=== PATIENT | female | born 1955 | race Caucasian/White ===

== ENCOUNTER → 2016-09-04 | Outpatient (CLI) | payer BC ==
--- NOTE | 2016-09-04 10:42 | MM ---
Reason for exam: follow-up at short interval from prior study. Last mammogram was performed 9 months ago. History: Patient is postmenopausal and has history of breast cancer at age 60. Family history of breast cancer in sister at age 73. Malignant MG pre op needle loc LT of the left breast, January 08, 2016. Malignant MG stereo VAD BX LT of the left breast, December 25, 2015. Physical Findings: Nurse did not find any significant physical abnormalities on exam. MG Diagnostic Mammo w CAD [facility] Bilateral CC and MLO view(s) were taken. Prior study comparison: December 12, 2015, left breast MG work up mamm w CAD LT. December 07, 2015, bilateral MG screening mammo w CAD. June 08, 2014, bilateral MG screening mammo w CAD. There are scattered fibroglandular densities. Finding #1: Architectural distortion in the anterior position of the left breast consistent with known lumpectomy. Finding #2: There are round, grouped/clustered calcifications in the right breast. There is no discrete abnormality. These results were verbally communicated with the patient and result sheet given to the patient on 09/04/16. ASSESSMENT: Benign, BI-RAD 2 RECOMMENDATION: Routine screening mammogram of both breasts in 1 year.
== END | disposition home or self-care (01) ==
LOC: RADMAMWWP 09:49
PROVIDERS: ATTEND Radiology Radiation Oncology
DX: Z85.3 Personal history of malignant neoplasm of breast (principal)

== ENCOUNTER → 2016-10-08 | Outpatient (CLI) | payer BC ==
--- NOTE | 2016-10-08 16:14 | XR ---
Bilateral hips HISTORY: Pain, osteoarthritis 2 views of the left and 2 views of the right hip are submitted. No comparisons Bone mineralization, joint spaces and alignment are maintained. Possible chondrocalcinosis present. M inimal marginal spurring present. IMPRESSION: Question crystal deposition arthropathy, alternate imaging may be of benefit
--- NOTE | 2016-10-08 16:15 | XR ---
Left shoulder HISTORY: Pain, osteoarthritis 3 views of the left shoulder Bone mineralization, joint spaces and alignment are maintained. Left lung apex as visualized is zachery l. There may be a spinal curvature, there is associated degenerative disc disease in the visualized t horacic spine. IMPRESSION: Degenerative disc disease, scoliosis, shoulder MRI may be of benefit.
== END | disposition home or self-care (01) ==
LOC: RADXRMAIN 13:03
PROVIDERS: ATTEND Family Medicine
DX: M19.012 Primary osteoarthritis, left shoulder (principal)
CPT/HCPCS: 73521

== ENCOUNTER → 2017-06-26 | Outpatient (CLI) | payer BC ==
--- NOTE | 2017-06-26 09:28 | US ---
EXAMINATION TYPE: US liver DATE OF EXAM: 06/26/2017 COMPARISON: NONE CLINICAL HISTORY: Abdominal Pain RUQ R10.11. Intermittent RUQ pain x 1 year EXAM MEASUREMENTS: Liver Length: 15.2 cm Gallbladder Wall: 0.3 cm CBD: 0.5 cm Right Kidney: 9.4 x 4.6 x 5.3 cm Pancreas: visualized portions wnl, tail obscured by overlying bowel gas Liver: heterogeneous with 3.2cm hypoechoic area adjacent to gallbladder Gallbladder: wnl Evidence for sonographic Gomez's sign: no CBD: visualized portions wnl, limited by overlying bowel gas Right Kidney: visualized portions wnl, inferior pole limited by overlying bowel gas IMPRESSION: 1. Fatty liver with the areas of focal hepatic sparing.
== END | disposition home or self-care (01) ==
LOC: RADUSWWP 08:25
PROVIDERS: ATTEND Internal Medicine Hematology & Oncology
DX: K76.0 Fatty (change of) liver, not elsewhere classified (principal); R10.11 Right upper quadrant pain; Z88.8 Allergy status to other drugs, medicaments and biological substances
CPT/HCPCS: 76705

== ENCOUNTER → 2017-09-07 | Outpatient (CLI) | payer BC ==
--- NOTE | 2017-09-07 11:01 | MM ---
Reason for exam: additional evaluation requested from prior study. Last mammogram was performed 1 year ago. History: Patient is postmenopausal and has history of breast cancer at age 60. Family history of breast cancer in sister at age 73. Malignant MG pre op needle loc LT of the left breast, January 08, 2016. Malignant MG stereo VAD BX LT of the left breast, December 25, 2015. Taking antineoplastic beginning at age 60. Physical Findings: Nurse did not find any significant physical abnormalities on exam. MG Diagnostic Mammo w CAD [facility] Bilateral CC and MLO view(s) were taken. Prior study comparison: September 04, 2016, bilateral MG diagnostic mammo w CAD [facility]. December 12, 2015, left breast MG work up mamm w CAD LT. There are scattered fibroglandular densities. No suspicious abnormality. Post therapy change on the left breast. These results were verbally communicated with the patient and result sheet given to the patient on 09/07/17. ASSESSMENT: Benign, BI-RAD 2 RECOMMENDATION: Follow-up diagnostic mammogram of both breasts in 1 year.
== END | disposition home or self-care (01) ==
LOC: RADMAMWWP 09:51
PROVIDERS: ATTEND Radiology Radiation Oncology
DX: Z08 Encounter for follow-up examination after completed treatment for malignant neoplasm (principal); Z85.3 Personal history of malignant neoplasm of breast
CPT/HCPCS: 77066

== ENCOUNTER → 2017-09-17 | Outpatient (CLI) | payer BC ==
--- NOTE | 2017-09-17 13:01 | XR ---
EXAMINATION TYPE: XR chest 2V DATE OF EXAM: 09/17/2017 COMPARISON: Prior chest x-ray 02/07/2016 HISTORY: Shortness of breath and chest pressure TECHNIQUE: Frontal and lateral views of the chest are obtained. FINDINGS: There is no focal air space opacity, pleural effusion, or pneumothorax seen. The cardiac silhouette size is stable. There is a mild spinal curvature. The osseous structures are intact. IMPRESSION: No acute cardiopulmonary process. Follow-up as indicated.
== END | disposition home or self-care (01) ==
LOC: RADXRMAIN 11:55
PROVIDERS: ATTEND Family Medicine
DX: J44.9 Chronic obstructive pulmonary disease, unspecified (principal)
CPT/HCPCS: 71046

== ENCOUNTER → 2017-09-29 | Outpatient (CLI) | payer BC ==
--- NOTE | 2017-09-29 19:18 | ECHOF ---
Referral Reason:J44.1 Chronic Obstructive Pulmonary Disease With MEASUREMENTS -------- HEIGHT: 160.0 cm WEIGHT: 97.5 kg BP: RVIDd: 2.4 cm (< 3.3) IVSd: 1.2 cm (0.6 - 1.1) LVIDd: 4.1 cm (3.9 - 5.3) LVPWd: 1.2 cm (0.6 - 1.1) IVSs: 1.5 cm LVIDs: 3.0 cm LVPWs: 1.8 cm LAESV Index (A-L): 23.87 ml/m Ao Diam: 3.2 cm (2.0 - 3.7) AV Cusp: 1.6 cm (1.5 - 2.6) LA Diam: 3.2 cm (2.7 - 3.8) EPSS: 0.4 cm MV E Daniel: 1.17 m/s MV DecT: 273 ms MV A Daniel: 1.14 m/s MV E/A Ratio: 1.03 RAP: 5.00 mmHg RVSP: 21.58 mmHg MV EF SLOPE: 129.68 mm/s (70 - 150) MV EXCURSION: 1.84 cm (> 18.000) FINDINGS -------- Sinus rhythm. This was a technically adequate study. The left ventricular size is normal. There is mild concentric left ventricular hypertrophy. Overa ll left ventricular systolic function is normal with, an EF between 55 - 60 %. The right ventricle is normal in size and function. Normal LA size by volume 22+/-6 ml/m2. The right atrium is normal in size. Aortic valve is trileaflet and is mildly thickened. There is no evidence of aortic regurgitation. There is no evidence of aortic stenosis. The mitral valve leaflets are mildly thickened. There is trace to mild mitral regurgitation. Trace tricuspid regurgitation present. Right ventricular systolic pressure is normal at < 35 mmHg. There is no evidence of pulmonary hypertension. The pulmonic valve was not well visualized. The aortic root size is normal. Normal inferior vena cava with normal inspiratory collapse consistent with estimated right atrial pre ssure of 5 mmHg. There is no pericardial effusion. CONCLUSIONS -------- 1. Sinus rhythm. 2. This was a technically adequate study. 3. The left ventricular size is normal. 4. There is mild concentric left ventricular hypertrophy. 5. Overall left ventricular systolic function is normal with, an EF between 55 - 60 %. 6. Normal LA size by volume 22+/-6 ml/m2. 7. Aortic valve is trileaflet and is mildly thickened. 8. The mitral valve leaflets are mildly thickened. 9. There is trace to mild mitral regurgitation. 10. Trace tricuspid regurgitation present. 11. Right ventricular systolic pressure is normal at < 35 mmHg. 12. There is no evidence of pulmonary hypertension. 13. The pulmonic valve was not well visualized. 14. The aortic root size is normal. 15. Normal inferior vena cava with normal inspiratory collapse consistent with estimated right atrial pressure of 5 mmHg. 16. There is no pericardial effusion. FILM TESTS CHECKER: Noel Haney RDCS
== END | disposition home or self-care (01) ==
LOC: RADECHMAIN 15:44
PROVIDERS: ATTEND Family Medicine
DX: I08.1 Rheumatic disorders of both mitral and tricuspid valves (principal)
CPT/HCPCS: 93306

== ENCOUNTER → 2018-01-25 | Outpatient (CLI) | payer BC ==
--- NOTE | 2018-01-25 18:41 | BD ---
EXAMINATION TYPE: Axial Bone Density DATE OF EXAM: 01/25/2018 COMPARISON: 12/07/2015 CLINICAL HISTORY: 62-year-old female postmenopausal screening without HRT Height: 62 IN Weight: 207 LBS FRAX RISK QUESTIONS: Secondary Osteoporosis: Rheumatoid Arthritis: YES Current Tobacco Use: YES RISK FACTORS HISTORY OF: Active: MODERATE Postmenopausal woman: AGE 51 MEDICATIONS: Additional Medications: VIT D, CALCIUM, IBUPROFEN, NORCO, ANASTROZOLE, ATORVASTATIN, AMITRIPTYLINE, D ULERA, GLUCOSAMINE,B12, ASPIRIN, METFORMIN, LASIX Additional History: BREAST CANCER WITH RADIATION EXAM MEASUREMENTS: Bone mineral densitometry was performed using the [employer] System. Bone mineral density as measured about the Lumbar spine is: ----- L1-L4(G/cm2): 1.248 T Score Values are as follows: ----- L2: 0.1 ----- L3: 0.4 ----- L4: 2.0 ----- L1-L4: 0.6 Bone mineral density has: Increased 1.6% since study of: 12/07/15 Bone mineral density about the R hip (g/cm2): 1.076 Bone mineral density about the L hip (g/cm2): 0.937 T Score values are as follows: -----R Neck: 0.3 -----L Neck: -0.7 -----R Total: 1.4 -----L Total: 0.6 Bone mineral density has: Decreased -1.0% since study of: 12/07/15 IMPRESSION: Normal (Values between +1 and -1 indicate normal bone mass). Consider repeating this study in 5 year s or sooner if there is some new clinical indication. NOTE: T-SCORE=SD OF THE YOUNG ADULT MEAN.
== END | disposition home or self-care (01) ==
LOC: RADBDWWP 09:57
PROVIDERS: ATTEND Internal Medicine Hematology & Oncology
DX: C50.112 Malignant neoplasm of central portion of left female breast (principal); Z17.0 Estrogen receptor positive status [ER+]
CPT/HCPCS: 77080

== ENCOUNTER → 2018-08-02 | Outpatient (CLI) | payer BC ==
--- NOTE | 2018-08-02 11:30 | MM ---
Reason for exam: additional evaluation requested from prior study. Last mammogram was performed 11 months ago. History: Patient is postmenopausal and has history of breast cancer at age 60. Family history of breast cancer in sister at age 73. Malignant MG pre op needle loc LT of the left breast, January 08, 2016. Malignant MG stereo VAD BX LT of the left breast, December 25, 2015. Radiation therapy of the left breast, 2016. Taking antineoplastic for 3 years beginning at age 60. Physical Findings: Nurse did not find any significant physical abnormalities on exam. MG Diagnostic Mammo w CAD [facility] Bilateral CC and MLO view(s) were taken. Prior study comparison: September 07, 2017, bilateral MG diagnostic mammo w CAD [facility]. September 04, 2016, bilateral MG diagnostic mammo w CAD [facility]. There are scattered fibroglandular densities. Post surgical changes left breast. No significant new findings when compared with previous films. These results were verbally communicated with the patient and result sheet given to the patient on 08/02/18. ASSESSMENT: Benign, BI-RAD 2 RECOMMENDATION: Follow-up diagnostic mammogram of both breasts in 1 year. Manage on a clinical basis with regard to right breast "tingling".
== END | disposition home or self-care (01) ==
LOC: RADMAMWWP 10:50
PROVIDERS: ATTEND Radiology Radiation Oncology
DX: Z08 Encounter for follow-up examination after completed treatment for malignant neoplasm (principal); Z85.3 Personal history of malignant neoplasm of breast
CPT/HCPCS: 77066

== ENCOUNTER → 2018-08-26 | Outpatient (CLI) | payer BC ==
--- NOTE | 2018-08-26 13:07 | XR ---
EXAMINATION TYPE: XR shoulder limited LT DATE OF EXAM: 08/26/2018 COMPARISON: NONE HISTORY: Pain TECHNIQUE: Two views are submitted. FINDINGS: The osseous structures are intact. There is no acute fracture or dislocation. The AC joint is maint ained. Tiny spur extending off the acromium. No definite intraosseous lesion. IMPRESSION: 1. Tiny spur extending off the acromium could be associated with rotator cuff disease..
== END | disposition home or self-care (01) ==
LOC: RADXRMAIN 12:38
PROVIDERS: ATTEND Internal Medicine Hematology & Oncology
DX: C50.112 Malignant neoplasm of central portion of left female breast (principal); J44.9 Chronic obstructive pulmonary disease, unspecified; R10.11 Right upper quadrant pain; Z17.0 Estrogen receptor positive status [ER+]

== ENCOUNTER → 2018-10-04 | Outpatient (CLI) | payer BC ==
--- NOTE | 2018-10-04 15:30 | CTL ---
EXAMINATION TYPE: CT Low Dose Lung DATE OF EXAM ORDERED: 10/04/2018 HISTORY: History of tobacco use. Lung cancer screening CT DLP: 88.[address] CTDI: 2.4 mGy Automated exposure control for dose reduction was used. SCREENING VISIT: Initial study COMPARISON: CTA chest October 01 2818 TECHNIQUE: Low dose computed tomography scan was performed through the chest at 1 mm thick sections a nd reconstructed images in the coronal plane at [address] DIAGNOSTIC QUALITY: Satisfactory FINDINGS: LUNG NODULES: None. LUNGS: COPD: Severity: Mild to moderate Fibrosis: Severity: Mild linear scarring left lung base Lymph nodes: No greater than 1 cm lymph nodes. Other findings: None BILATERAL PLEURAL SPACE: Effusion: None Calcification: None Thickening: None Pneumothorax: None HEART: Heart Size: Normal Coronary calcification: Mild to moderate calcified plaque Pericardial effusion: Trace inferiorly right aspect OTHER FINDINGS: Upper abdomen: None Bony thorax: Slight scoliotic curvature with mild multilevel spurring Supraclavicular region: None Other: None IMPRESSION: No suspicious nodules. FOLLOW UP CT CHEST RECOMMENDATION: Annual low-dose lung screening CT. CT LUNG RAD: Lung-Rad 1 Negative
== END | disposition home or self-care (01) ==
LOC: RADCTMAIN 13:27
PROVIDERS: ATTEND Radiology Radiation Oncology
DX: Z12.2 Encounter for screening for malignant neoplasm of respiratory organs (principal); F17.200 Nicotine dependence, unspecified, uncomplicated

== ENCOUNTER → 2019-08-16 | Outpatient (CLI) | payer BC ==
--- NOTE | 2019-08-16 10:08 | MM ---
Reason for exam: additional evaluation requested from prior study. Last mammogram was performed 1 year ago. History: Patient is postmenopausal and has history of breast cancer at age 60. Family history of breast cancer in sister at age 73. Malignant MG pre op needle loc LT of the left breast, January 08, 2016. Malignant MG stereo VAD BX LT of the left breast, December 25, 2015. Lumpectomy of the left breast, 2016. Radiation therapy of the left breast, 2016. Taking antineoplastic for 3 years beginning at age 60. Physical Findings: Nurse did not find any significant physical abnormalities on exam. MG Diagnostic Mammo w CAD [facility] Bilateral CC and MLO view(s) were taken. Prior study comparison: August 02, 2018, bilateral MG diagnostic mammo w CAD [facility]. September 07, 2017, bilateral MG diagnostic mammo w CAD [facility]. There are scattered fibroglandular densities. Benign appearing bilateral calcifications. No suspicious abnormality. Left post therapy change. No significant new findings when compared with previous films. These results were verbally communicated with the patient and result sheet given to the patient on 08/16/19. ASSESSMENT: Benign, BI-RAD 2 RECOMMENDATION: Follow-up diagnostic mammogram of both breasts in 1 year.
== END | disposition home or self-care (01) ==
LOC: RADMAMWWP 09:14
PROVIDERS: ATTEND Radiology Radiation Oncology
DX: C50.512 Malignant neoplasm of lower-outer quadrant of left female breast (principal); C50.412 Malignant neoplasm of upper-outer quadrant of left female breast; Z98.890 Other specified postprocedural states
CPT/HCPCS: 77066

== ENCOUNTER → 2020-06-18 | Outpatient (CLI) | payer BC ==
--- NOTE | 2020-06-18 11:32 | MM ---
Reason for exam: additional evaluation requested from prior study. Last mammogram was performed 10 months ago. History: Patient is postmenopausal and has history of breast cancer at age 60. Family history of breast cancer in sister at age 73. Malignant MG pre op needle loc LT of the left breast, January 08, 2016. Malignant MG stereo VAD BX LT of the left breast, December 25, 2015. Lumpectomy of the left breast, 2016. Radiation therapy of the left breast, 2016. Taking antineoplastic for 3 years beginning at age 60. Physical Findings: Nurse did not find any significant physical abnormalities on exam. MG Diagnostic Mammo w CAD [facility] Bilateral CC and MLO view(s) were taken. Prior study comparison: August 16, 2019, bilateral MG diagnostic mammo w CAD [facility]. September 07, 2017, bilateral MG diagnostic mammo w CAD [facility]. There are scattered fibroglandular densities. Finding: Architectural distortion in the anterior position of the left breast consistent with known lumpectomy changes. There is a chronic nodularity in the right breast. There is no discrete abnormality. These results were verbally communicated with the patient and result sheet given to the patient on 06/18/20. ASSESSMENT: Benign, BI-RAD 2 RECOMMENDATION: Follow-up diagnostic mammogram of both breasts in 1 year.
== END | disposition home or self-care (01) ==
LOC: RADMAMWWP 10:19
PROVIDERS: ATTEND Radiology Radiation Oncology
DX: C50.512 Malignant neoplasm of lower-outer quadrant of left female breast (principal); Z98.890 Other specified postprocedural states; F17.210 Nicotine dependence, cigarettes, uncomplicated
CPT/HCPCS: 77066

== ENCOUNTER → 2021-06-18 | Outpatient (CLI) | payer BC ==
--- NOTE | 2021-06-20 12:37 | MM ---
Reason for exam: additional evaluation requested from prior study. Last mammogram was performed 1 year ago. History: Patient is postmenopausal and has history of breast cancer at age 60. Family history of breast cancer in sister at age 73. Malignant MG pre op needle loc LT of the left breast, January 08, 2016. Malignant MG stereo VAD BX LT of the left breast, December 25, 2015. Lumpectomy of the left breast, 2016. Radiation therapy of the left breast, 2016. Taking antineoplastic for 3 years beginning at age 60. Physical Findings: Nurse did not find any significant physical abnormalities on exam. MG Diagnostic Mammo w CAD [facility] Bilateral CC and MLO view(s) were taken. Prior study comparison: June 18, 2020, bilateral MG diagnostic mammo w CAD [facility]. August 16, 2019, bilateral MG diagnostic mammo w CAD [facility]. There are scattered fibroglandular densities. There is chronic nodularity in the right breast. Post surgical and post therapy changes left breast. No significant new findings when compared with previous films. These results were verbally communicated with the patient and result sheet given to the patient on 06/18/21. ASSESSMENT: Benign, BI-RAD 2 RECOMMENDATION: Follow-up diagnostic mammogram of both breasts in 1 year.
== END | disposition home or self-care (01) ==
LOC: RADMAMWWP 12:39
PROVIDERS: ATTEND Radiology Radiation Oncology
DX: R92.8 Other abnormal and inconclusive findings on diagnostic imaging of breast (principal); Z85.3 Personal history of malignant neoplasm of breast; Z80.3 Family history of malignant neoplasm of breast; Z78.0 Asymptomatic menopausal state
CPT/HCPCS: 77066

== ENCOUNTER → 2021-07-25 | Outpatient (CLI) | payer MEDICARE ==
--- NOTE | 2021-07-25 15:24 | BD ---
EXAMINATION TYPE: Axial Bone Density DATE OF EXAM: 07/25/2021 COMPARISON: 01.25.2018 CLINICAL HISTORY: 66 YR OLD FEMALE......ICD-10 CODE: Z78.0 MENOPAUSAL, M89.9 BD DISORDER Height: 61.4 Weight: 199 FRAX RISK QUESTIONS: Secondary Osteoporosis: YES 3. Menopause before 45: YES CIGARETTE SMOKER, QUIT ONLY 6 MOS AGO RISK FACTORS HISTORY OF: Family History of Osteoporosis: UNSURE Postmenopausal woman: YES, AT AGE 44 YRS OLD, NATURAL...TRAMATIC Lost more than 2 inches in height since high school: YES Hyperparathyroidism: NO Adrenal Insufficiency: NO MEDICATIONS: Additional Medications: HX OF RADIATION, ARIMIDEX , NORCO, LASIX, IBUPROFEN, STATIN FOR CHOLESTEROL, CALCIUM, METFORMIN, ASPIRIN, VIT D Additional History: HX OF LT BREAST CANCER, CHRONIC PAIN, CHOLESTEROL, HYPERTENSION, DIABETIC, ARTHR ITIS EXAM MEASUREMENTS: Bone mineral densitometry was performed using the [employer] System. Bone mineral density as measured about the Lumbar spine is: ----- L1-L4(G/cm2): 1.243 T Score Values are as follows: ----- L1: -0.9 ----- L2: -0.8 ----- L3: 1.7 ----- L4: 2.6 ----- L1-L4: 0.5 Bone mineral density has: Increased 1.1% since study of: 01.25.2018 Bone mineral density about the R hip (g/cm2): 1.242 Bone mineral density about the L hip (g/cm2): 1.108 T Score values are as follows: -----R Neck: 0.7 -----L Neck: -0.7 -----R Total: 1.9 -----L Total: 0.8 Bone mineral density has: Increased 4.0% since study of: 01.25.2018 FRAX%s: THERE IS A 6.0% CHANCE FOR A MAJOR OSTEOPOROTIC FX AND A 0.4% FOR HIPS......PROBABILITY F OR FX IN 10 YRS TIME IMPRESSION: Normal (Values between +1 and -1 indicate normal bone mass). Consider repeating this study in 5 year s or sooner if there is some new clinical indication. NOTE: T-SCORE=SD OF THE YOUNG ADULT MEAN.
== END | disposition home or self-care (01) ==
LOC: RADBDWWP 13:40
PROVIDERS: ATTEND Family Medicine
DX: M89.9 Disorder of bone, unspecified (principal); Z78.0 Asymptomatic menopausal state
CPT/HCPCS: 77080

== ENCOUNTER 2021-10-09 10:37 | Inpatient (IN) | payer MEDICARE ==
[2021-10-09 11:49] LABS: ALT 574 U/L (4-34); AST 215 U/L (14-36); African American GFR (CKD) >90 (>60 ml/min/1.73 sqM); Albumin 4.5 g/dL (3.5-5.0); Alkaline Phosphatase 680 U/L (38-126); Amylase 110 U/L (30-110); Anion Gap 11 mmol/L; Blood Urea Nitrogen 17 mg/dL (7-17); Calcium 9.9 mg/dL (8.4-10.2); Carbon Dioxide 22 mmol/L (22-30); Chloride 103 mmol/L (98-107); Glucose 99 mg/dL (74-99); Lipase 178 U/L (23-300); Non-African American GFR(CKD) 81 (>60 ml/min/1.73 sqM); Potassium 4.5 mmol/L (3.5-5.1); Sodium 136 mmol/L (137-145); Total Bilirubin 3.5 mg/dL (0.2-1.3); Total Protein 7.7 g/dL (6.3-8.2)
[2021-10-09 11:58] LABS: INR 0.8 (<1.2); Prothrombin Time 9.5 sec (9.0-12.0)
[2021-10-09 11:59] LABS: Partial Thromboplastin Time 26.5 sec (22.0-30.0)
[2021-10-09 12:05] LABS: Basophils # (A) 0.1 k/uL (0-0.2); Basophils % (A) 1 %; Eosinophils # (A) 0.8 k/uL (0-0.7); Eosinophils % (A) 11 %; HCT 45.4 % (34.0-46.0); HGB 14.2 gm/dL (11.4-16.0); Lymphocytes # (A) 2.1 k/uL (1.0-4.8); Lymphocytes % (A) 27 %; MCH 31.4 pg (25.0-35.0); MCHC 31.3 g/dL (31.0-37.0); MCV 100.4 fL (80.0-100.0); Mean Platelet Volume 8.6; Monocytes # (A) 0.7 k/uL (0-1.0); Monocytes % (A) 9 %; Neutrophils % (A) 49 %; Platelet Count 273 k/uL (150-450); RBC 4.52 m/uL (3.80-5.40); RDW 12.9 % (11.5-15.5)
--- NOTE | 2021-10-09 12:08 | US ---
EXAMINATION TYPE: US abdomen limited DATE OF EXAM: 10/09/2021 COMPARISON: Previous 06/26/2017 CLINICAL HISTORY: RUQ pain, transaminitis. epigastric pain. nausea EXAM MEASUREMENTS: Liver Length: 15.2 cm Gallbladder Wall: 0.4 cm CBD: 0.4 cm Right Kidney: 10.2 x 4.1 x 4.6 cm Pancreas: Tail obscured by overlying bowel gas Liver: heterogeneous Gallbladder: Contracted, thickened GB wall Evidence for sonographic Gomez's sign: no CBD: visualized portions appear wnl Right Kidney: no evidence of hydronephrosis IMPRESSION: Exam is somewhat limited. Coarse echotexture of the liver could be due to underlying hepa tic steatosis, hepatocellular disease. Gallbladder is contracted.
[2021-10-09 12:37] LABS: Appearance,Urine Clear (Clear); Bilirubin,Urine Negative (Negative); Blood,Urine Trace (Negative); Color,Urine Yellow; Glucose,Urine (UA) Negative (Negative); Ketones,Urine Negative (Negative); Leukocyte Esterase,Urine Small (Negative); Mucus,Urine Rare /hpf; Nitrite,Urine Negative (Negative); Protein,Urine Negative (Negative); RBC,Urine 1 /hpf (0-5); Specific Gravity,Urine 1.009 (1.001-1.035); Squamous Epithelial Cell,Urine 1 /hpf (0-4); Urobilinogen,Urine <2.0 mg/dL (<2.0); WBC,Urine 2 /hpf (0-5)
--- NOTE | 2021-10-09 13:36 | CT ---
EXAMINATION TYPE: CT abdomen pelvis w con DATE OF EXAM: 10/09/2021 COMPARISON: No previous CT scan is available for comparison HISTORY: Abdominal pain with abnormal labs CT DLP: 1405.2 mGycm Automated exposure control for dose reduction was used. TECHNIQUE: Helical acquisition of images was performed from the lung bases through the pelvis. CONTRAST: Performed without Oral Contrast and with IV Contrast, patient injected with 100 ml mL of Isovue 300. FINDINGS: LUNG BASES: Left posterior fat-containing diaphragmatic hernia. LIVER/GB: Slightly heterogeneous enhancement of the liver. No definite hepatic focal lesion. The gall bladder is contracted. Patent portal vein and hepatic veins. No intra or extrahepatic biliary tree di latation. PANCREAS: No significant abnormality is seen. SPLEEN: No significant abnormality is seen. ADRENALS: No significant abnormality is seen. KIDNEYS: A few tiny cysts are seen at the upper pole of the left kidney, otherwise unremarkable kidne ys. FREE AIR: No free air is visualized. RETROPERITONEAL ADENOPATHY: None visualized REPRODUCTIVE ORGANS: Suspected small left-sided uterine fibroid, suboptimally assessed by this CT sca n. No gross adnexal mass. URINARY BLADDER: No significant abnormality is seen. PELVIC ADENOPATHY: No pathologically enlarged pelvic lymph nodes. OSSEOUS STRUCTURES: Lower lumbar facet osteoarthropathy. No aggressive bone lesion. BOWEL: Unremarkable nondistended stomach, duodenum and small bowel. Scattered uncomplicated colonic diverticulosis. Normal appendix. OTHER: Extensive arterial atherosclerotic calcifications and atheromatous plaques. No sizable ascites . Fat-containing umbilical hernia. IMPRESSION: Slightly heterogeneous enhancement of the liver, nonspecific, please correlate with liver function te sts and hepatic viral serology. Contracted gallbladder. No other definite acute abnormality seen in t he abdomen or the pelvis. Incidental findings as described above.
--- NOTE | 2021-10-09 13:39 | ED ---
General Adult HPI - General Chief complaint: Recheck/Abnormal Lab/Rx Stated complaint: Abd labs Time Seen by Provider: 10/09/21 10:44 Source: patient, RN notes reviewed Mode of arrival: ambulatory Limitations: no limitations - History of Present Illness Initial comments: 66-year-old female presents emergency Department from outpatient for abnormal labs. Patient had trending transaminitis. Patient states that she's been having upper abdominal pain. Patient does have gallbladder. Patient admits slight nausea no vomiting patient states she's had harrison stools. States she is sent in for further workup, ultrasound. Patient denies any prior liver disease. - Related Data Home Medications Medication Instructions Recorded Confirmed Aspirin EC [Ecotrin Low Dose] 81 mg PO HS 10/09/21 10/09/21 Calcium Carbonate [Calcium] 600 mg PO DAILY 10/09/21 10/09/21 Cholecalciferol [Vitamin D3 (25 25 mcg PO DAILY 10/09/21 10/09/21 Mcg = 1000 Iu)] Furosemide [Lasix] 20 mg PO DAILY 10/09/21 10/09/21 HYDROcodone/APAP 7.5-325MG [[place] 0.5 tab PO TID 10/09/21 10/09/21 7.5-325] Ibuprofen [Motrin] 400 mg PO Q8H 10/09/21 10/09/21 Rosuvastatin [Crestor] 20 mg PO DIRECTED 10/09/21 10/09/21 Zinc 50 mg PO DAILY 10/09/21 10/09/21 metFORMIN HCL [Glucophage XR] 750 mg PO W/SUPPER 10/09/21 10/09/21 Allergies Allergy/AdvReac Type Severity Reaction Status Date / Time prednisone AdvReac SHAKING. Verified 10/09/21 12:44 Review of Systems ROS Statement: Those systems with pertinent positive or pertinent negative responses have been documented in the HPI. ROS Other: All systems not noted in ROS Statement are negative. Past Medical History Past Medical History: COPD, Hyperlipidemia, Osteoarthritis (OA) Additional Past Medical History / Comment(s): RESTLESS LEG. BURSITIS RIGHT HIP. HAS POSITIVE HEPATITIS C ANTIBODIES. History of Any Multi-Drug Resistant Organisms: None Reported Past Surgical History: Breast Surgery, Hernia Repair, Tubal Ligation Additional Past Surgical History / Comment(s): STEREOTACTIC BREAST BX LEFT. Additional Past Anesthesia/Blood Transfusion Reaction / Comment(s): COLONOSCOPY. DUE TO COPD SHE WOKE FROM ANESTHESIA COUGHING, CHOKING, SOB SHE WANTS TO ENSURE THAT HER HEAD OF BED WILL BE UP. Past Psychological History: No Psychological Hx Reported Smoking Status: Current some day smoker Past Alcohol Use History: None Reported Past Drug Use History: None Reported - Past Family History Sister(s) Family Medical History: Cancer Additional Family Medical History / Comment(s): BREAST General Exam Limitations: no limitations General appearance: alert, in no apparent distress Head exam: Present: atraumatic, normocephalic, normal inspection Eye exam: Present: normal appearance, PERRL, EOMI. Absent: scleral icterus, conjunctival injection, periorbital swelling ENT exam: Present: normal exam, normal oropharynx, mucous membranes moist Neck exam: Present: normal inspection, full ROM. Absent: tenderness, meningismus, lymphadenopathy Respiratory exam: Present: normal lung sounds bilaterally. Absent: respiratory distress, wheezes, rales, rhonchi, stridor Cardiovascular Exam: Present: regular rate, normal rhythm, normal heart sounds. Absent: systolic murmur, diastolic murmur, rubs, gallop, clicks GI/Abdominal exam: Present: tenderness Course Vital Signs 10/09/21 10:38 Temperature 97.8 F Pulse Rate 83 Respiratory 16 Rate Blood Pressure 171/102 O2 Sat by Pulse 99 Oximetry Medical Decision Making - Medical Decision Making Patient unable admitted for further workup for acute hepatitis. Patient SHOWS CONTRACTED GALLBLADDER, MILD THICKENED GALLBLADDER WALL. NO SIGNS OF INFECTION. PATIENT ADMITTED FOR GI CONSULT - Lab Data Result diagrams: 10/09/21 11:22 10/09/21 11:22 Lab Results 10/09/21 10/09/21 10/09/21 Range/Units 11:22 11:22 11:22 WBC 8.0 (3.8-10.6) k/uL RBC 4.52 (3.80-5.40) m/uL Hgb 14.2 (11.4-16.0) gm/dL Hct 45.4 (34.0-46.0) % MCV 100.4 H (80.0-100.0) fL MCH 31.4 (25.0-35.0) pg MCHC 31.3 (31.0-37.0) g/dL RDW 12.9 (11.5-15.5) % Plt Count 273 (150-450) k/uL MPV 8.6 Neutrophils % 49 % Lymphocytes % 27 % Monocytes % 9 % Eosinophils % 11 % Basophils % 1 % Neutrophils # 4.0 (1.3-7.7) k/uL Lymphocytes # 2.1 (1.0-4.8) k/uL Monocytes # 0.7 (0-1.0) k/uL Eosinophils # 0.8 H (0-0.7) k/uL Basophils # 0.1 (0-0.2) k/uL PT 9.5 (9.0-12.0) sec INR 0.8 (<1.2) APTT 26.5 (22.0-30.0) sec Sodium 136 L (137-145) mmol/L Potassium 4.5 (3.5-5.1) mmol/L Chloride 103 (98-107) mmol/L Carbon Dioxide 22 (22-30) mmol/L Anion Gap 11 mmol/L BUN 17 (7-17) mg/dL Creatinine 0.77 (0.52-1.04) mg/dL Est GFR (CKD-EPI)AfAm >90 (>60 ml/min/1.73 sqM) Est GFR (CKD-EPI)NonAf 81 (>60 ml/min/1.73 sqM) Glucose 99 (74-99) mg/dL Plasma Lactic Acid Edwin (0.7-2.0) mmol/L Calcium 9.9 (8.4-10.2) mg/dL Total Bilirubin 3.5 H (0.2-1.3) mg/dL AST 215 H (14-36) U/L ALT 574 H (4-34) U/L Alkaline Phosphatase 680 H (38-126) U/L Total Protein 7.7 (6.3-8.2) g/dL Albumin 4.5 (3.5-5.0) g/dL Amylase 110 (30-110) U/L Lipase 178 (23-300) U/L Urine Color Urine Appearance (Clear) Urine pH (5.0-8.0) Ur Specific [place] (1.001-1.035) Urine Protein (Negative) Urine Glucose (UA) (Negative) Urine Ketones (Negative) Urine Blood (Negative) Urine Nitrite (Negative) Urine Bilirubin (Negative) Urine Urobilinogen (<2.0) mg/dL Ur Leukocyte Esterase (Negative) Urine RBC (0-5) /hpf Urine WBC (0-5) /hpf Ur Squamous Epith Cells (0-4) /hpf Urine Mucus (None) /hpf 10/09/21 10/09/21 Range/Units 11:22 12:02 WBC (3.8-10.6) k/uL RBC (3.80-5.40) m/uL Hgb (11.4-16.0) gm/dL Hct (34.0-46.0) % MCV (80.0-100.0) fL MCH (25.0-35.0) pg MCHC (31.0-37.0) g/dL RDW (11.5-15.5) % Plt Count (150-450) k/uL MPV Neutrophils % % Lymphocytes % % Monocytes % % Eosinophils % % Basophils % % Neutrophils # (1.3-7.7) k/uL Lymphocytes # (1.0-4.8) k/uL Monocytes # (0-1.0) k/uL Eosinophils # (0-0.7) k/uL Basophils # (0-0.2) k/uL PT (9.0-12.0) sec INR (<1.2) APTT (22.0-30.0) sec Sodium (137-145) mmol/L Potassium (3.5-5.1) mmol/L Chloride (98-107) mmol/L Carbon Dioxide (22-30) mmol/L Anion Gap mmol/L BUN (7-17) mg/dL Creatinine (0.52-1.04) mg/dL Est GFR (CKD-EPI)AfAm (>60 ml/min/1.73 sqM) Est GFR (CKD-EPI)NonAf (>60 ml/min/1.73 sqM) Glucose (74-99) mg/dL Plasma Lactic Acid Edwin 0.9 (0.7-2.0) mmol/L Calcium (8.4-10.2) mg/dL Total Bilirubin (0.2-1.3) mg/dL AST (14-36) U/L ALT (4-34) U/L Alkaline Phosphatase (38-126) U/L Total Protein (6.3-8.2) g/dL Albumin (3.5-5.0) g/dL Amylase (30-110) U/L Lipase (23-300) U/L Urine Color Yellow Urine Appearance Clear (Clear) Urine pH 5.0 (5.0-8.0) Ur Specific [place] 1.009 (1.001-1.035) Urine Protein Negative (Negative) Urine Glucose (UA) Negative (Negative) Urine Ketones Negative (Negative) Urine Blood Trace H (Negative) Urine Nitrite Negative (Negative) Urine Bilirubin Negative (Negative) Urine Urobilinogen <2.0 (<2.0) mg/dL Ur Leukocyte Esterase Small H (Negative) Urine RBC 1 (0-5) /hpf Urine WBC 2 (0-5) /hpf Ur Squamous Epith Cells 1 (0-4) /hpf Urine Mucus Rare H (None) /hpf Disposition Clinical Impression: Acute hepatitis, Hyperbilirubinemia, Abdominal pain Disposition: ADMITTED IP TO THIS HOSP Referrals: Elmira Damian MD [Primary Care Provider] - 1-2 days
[2021-10-09] MEDS ORDERED: ONDANSETRON 4 MG/2 ML VIAL IVP PRN (14:10)
[2021-10-09] MEDS ORDERED: NALOXONE 0.4 MG/ML 1 ML VIAL IV PRN (14:10)
--- NOTE | 2021-10-09 14:44 | P.HPIM ---
History of Present Illness Chief Complaint: Abdominal discomfort Patient is a 66-year-old female with a possible echo which was significant for COPD not on home oxygen, diabetes mellitus and hyperlipidemia was recently started on a medication rosuvastatin by her PCP. Patient states that she's been complaining of abdominal discomfort which is located in the epigastric region does not radiate specifically anywhere, currently rates it 8 out of 10 that is sharp and intermittent in nature. Patient also complains of change in stool color as it's becoming more pale compared to previous bowel movements brownish. Patient was a value in the emergency department was found to have elevated LFTs AST was found to be 2:15, AOT 574, alkaline phosphatase 680 be on a Credi within normal limits. Computed tomography scan of the abdomen and pelvis and ultrasound was completed. Ultrasound showed coarse echotexture of the liver with possible underlying hepatic steatosis, postnasal disease. Computed tomography scan of the abdomen and pelvis showed heterogeneous enhancement of the liver, no other definitive acute abnormality seen on the abdomen and pelvis. There was a small left-sided uterine fibroid noted. Patient is being admitted to internal medicine, gastrology has been consulted from the emergency department. Past Medical History Past Medical History: COPD, Hyperlipidemia, Osteoarthritis (OA) Additional Past Medical History / Comment(s): RESTLESS LEG. BURSITIS RIGHT HIP. HAS POSITIVE HEPATITIS C ANTIBODIES. History of Any Multi-Drug Resistant Organisms: None Reported Past Surgical History: Breast Surgery, Hernia Repair, Tubal Ligation Additional Past Surgical History / Comment(s): STEREOTACTIC BREAST BX LEFT. Additional Past Anesthesia/Blood Transfusion Reaction / Comment(s): COLONOSCOPY. DUE TO COPD SHE WOKE FROM ANESTHESIA COUGHING, CHOKING, SOB SHE WANTS TO ENSURE THAT HER HEAD OF BED WILL BE UP. Past Psychological History: No Psychological Hx Reported Smoking Status: Current some day smoker Past Alcohol Use History: None Reported Past Drug Use History: None Reported - Past Family History Sister(s) Family Medical History: Cancer Additional Family Medical History / Comment(s): BREAST Medications and Allergies Home Medications Medication Instructions Recorded Confirmed Type Aspirin EC [Ecotrin Low Dose] 81 mg PO HS 10/09/21 10/09/21 History Calcium Carbonate [Calcium] 600 mg PO DAILY 10/09/21 10/09/21 History Cholecalciferol [Vitamin D3 (25 25 mcg PO DAILY 10/09/21 10/09/21 History Mcg = 1000 Iu)] Furosemide [Lasix] 20 mg PO DAILY 10/09/21 10/09/21 History HYDROcodone/APAP 7.5-325MG [[place] 0.5 tab PO TID 10/09/21 10/09/21 History 7.5-325] Ibuprofen [Motrin] 400 mg PO Q8H 10/09/21 10/09/21 History Rosuvastatin [Crestor] 20 mg PO DIRECTED 10/09/21 10/09/21 History Zinc 50 mg PO DAILY 10/09/21 10/09/21 History metFORMIN HCL [Glucophage XR] 750 mg PO W/SUPPER 10/09/21 10/09/21 History Allergies Allergy/AdvReac Type Severity Reaction Status Date / Time prednisone AdvReac SHAKING. Verified 10/09/21 12:44 Physical Exam Vitals: Vital Signs Temp Pulse Resp BP Pulse Ox 10/09/21 14:14 76 18 131/77 98 10/09/21 10:38 97.8 F 83 16 171/102 99 Intake and Output 10/08/21 10/09/21 10/09/21 22:59 06:59 14:59 Other: Weight 90.718 kg Gen. patient is awake alert oriented 3 Respiratory no wheezing or rhonchi appreciated Abdomen soft, nontender slightly uncomfortable on deep palpation in the epigastric region Cardiac normal S1/S2 Extremity no pitting edema Psych normal mood Results CBC & Chem 7: 10/09/21 11:22 10/09/21 11:22 Labs: Abnormal Lab Results - Last 24 Hours (Table) 10/09/21 10/09/21 10/09/21 Range/Units 11:22 11:22 12:02 MCV 100.4 H (80.0-100.0) fL Eosinophils # 0.8 H (0-0.7) k/uL Sodium 136 L (137-145) mmol/L Total Bilirubin 3.5 H (0.2-1.3) mg/dL AST 215 H (14-36) U/L ALT 574 H (4-34) U/L Alkaline Phosphatase 680 H (38-126) U/L Urine Blood Trace H (Negative) Ur Leukocyte Esterase Small H (Negative) Urine Mucus Rare H (None) /hpf Assessment and Plan Assessment: Assessment/plan #1 transaminitis #2 intractable abdominal pain secondary to above versus viral #3 COPD not on home oxygen #4 hyperlipidemia recently started on statin #5 history of lumpectomy left breast 2015 #6 diabetes mellitus [id number] Plan: -Admit to medicine for close monitoring -Aspiration/fall precaution -Recommend holding statin medication as this was recently started could be a culprit. -Obtain hepatitis panel I will hold off ordering autoimmune antibody test until preliminary testing is negative. -Computed tomography scan of abdomen and pelvis and ultrasound reviewed -Pain control when necessary -Patient does take atenolol and narco for prostatitis at home -DVT prophylaxis -Disposition pending evaluation by GI.
[2021-10-09] MEDS: SODIUM CHLORIDE 0.9% 1,000 ML IV SCH (17:00)
[2021-10-09 17:38] LABS: Glucose,Whole Blood 227 mg/dL (75-99)
[2021-10-09] MEDS: INSULIN ASPART (NovoLOG) 100 UNIT/ML VIAL SQ SCH ×2 (17:38→20:43)
[2021-10-09 19:19] LABS: Hepatitis A Antibody IgM Nonreactive (Nonreactive); Hepatitis B Core IgM Nonreactive (Nonreactive); Hepatitis B Surface Antigen Nonreactive (Nonreactive); Hepatitis C IgG Antibody Nonreactive (Nonreactive)
[2021-10-09 20:30] LABS: Glucose,Whole Blood 117 mg/dL (75-99)
[2021-10-10] MEDS: SODIUM CHLORIDE 0.9% 1,000 ML IV SCH ×2 (04:54→16:17)
[2021-10-10 07:09] LABS: Glucose,Whole Blood 104 mg/dL (75-99)
[2021-10-10] MEDS: INSULIN ASPART (NovoLOG) 100 UNIT/ML VIAL SQ SCH ×4 (07:23→21:03)
[2021-10-10 11:04] LABS: Glucose,Whole Blood 100 mg/dL (75-99)
--- NOTE | 2021-10-10 13:32 | P.PN ---
Subjective Patient was seen and examined. Patient admitted for ablation of elevated liver enzyme and hyperbilirubinemia, acholic stools CT of the abdomen shows some fatty liver disease no other acute abnormalities She is up in the chair today, denying any nausea vomiting. She does have some epigastric discomfort but significantly improved. She has been on statin which is discontinued. Viral hepatitis study has been negative so far. Objective - Vital Signs Vital signs: Vital Signs Temp 97.5 F L 10/10/21 07:30 Pulse 82 10/10/21 07:30 Resp 19 10/10/21 07:45 BP 128/85 10/10/21 07:30 Pulse Ox 94 L 10/10/21 07:30 Intake & Output 10/09/21 10/10/21 10/10/21 18:59 06:59 18:59 Weight 90.718 kg - Exam Gen. awake alert oriented 3 no Distress Head and neck: Theodore diced sclera, oropharyngeal mucosa is clear no neck masses no JVD Lungs: Clear to auscultation Cardiovascular regular rhythm and rate Abdomen: Nondistended nontender no flank tenderness to right upper quadrant tenderness no cyanosis Extremities: No peripheral edema no cough tenderness no cyanosis Skin:no angiomata. no rashes or hematomas Neurological: No asterixis - Labs CBC & Chem 7: 10/09/21 11:22 10/09/21 11:22 Labs: Abnormal Lab Results - Last 24 Hours (Table) 10/09/21 10/09/21 10/10/21 Range/Units 17:36 20:29 07:07 POC Glucose (mg/dL) 227 H 117 H 104 H (75-99) mg/dL 10/10/21 Range/Units 11:02 POC Glucose (mg/dL) 100 H (75-99) mg/dL Assessment and Plan Plan: #Acute liver injury with obstructive jaundice CT abdomen: No obvious source of obstruction, fatty liver disease Hepatitis viral studies: Negative Further workup as per gastroenterology, may need further evaluation for PBC, ultimately hepatitis, malignancy GI consult Avoid hepatotoxins #History of COPD Not exacerbated, not home oxygen #Type 2 diabetes mellitus without long-term current use of insulin Continue sliding scale and diabetic diet
--- NOTE | 2021-10-10 15:19 | P.CONS ---
History of Present Illness - Reason for Consult Consult date: 10/10/21 Elevated LFTs, hyperbilirubinemia Requesting physician: Leland Iachano - Chief Complaint Abnormal labs - History of Present Illness Patient 66-year-old female admitted for abnormal labs. She has a past medical history of COPD, hyperlipidemia, and osteoarthritis. Patient had noticed that she had dark urine and [place] stools and went to her primary care physician who did blood work and saw that she had elevated LFTs as well as bilirubin. Patient denies any previous history of liver disease. She denies any previous history of hepatitis. No history of alcohol abuse. CT of abdomen and pelvis show slightly heterogeneous enhancement of liver, nonspecific please correlate with LFTs and hepatic viral serology. Contracted gallbladder. No other definite acute abnormality seen in abdomen or pelvis. Gallbladder ultrasound shows coarse echotexture of liver could be due to underlying hepatic steatosis, hepatocellular disease. Gallbladder contracted. She was recently diagnosed with COVID-19 and treated with antibiotics azithromycin in August as well as Paxlovid. She still was not feeling well and was prescribed Augmentin on 09/24/2021 and just finished last week. Pattern of elevation in her total bilirubin, AST, ALT and alkaline phosphatase is consistent with intrahepatic cholestasis likely related to her Augmentin. Patient also states she had been on a atorvastatin for the last 1 year duration, and that was discontinued yesterday. Patient states that she does have some abdominal discomfort, mostly after eating. She also has a history of irritable bowel syndrome. She does get several cramping after bowel movements. No nausea or vomiting at this time. WBC 8 hemoglobin 14.2 hematocrit 45 platelet count 273,000 INR 0.8 total bilirubin 3.5 AST 2:15 ALT 574 alkaline phosphatase 680 amylase 110 lipase 178 Review of Systems REVIEW OF SYSTEMS: CARDIOPULMONARY: No chest pain or shortness of breath. Gastrointestinal: Abdominal discomfort, mostly upper abdomen and right side.. No nausea or vomiting. No hematemesis, coffee-ground emesis. No rectal bleeding, or melena. [place] stool. GENITOURINARY: No dysuria or hematuria. MUSCULOSKELETAL: Reports normal range of motion. SKIN: No rashes. No jaundice. ENDOCRINE: No chills, fevers. No excessive weight gain or loss. No polydipsia or polyuria. Dark urine. PSYCHIATRIC: Unremarkable. NEUROLOGY: No change in mental status. Denies dizziness, headache. ENT: Vision unremarkable. CONSTITUTIONAL: No recent weight loss. No fever, chills, night sweats. Past Medical History Past Medical History: COPD, Hyperlipidemia, Osteoarthritis (OA) Additional Past Medical History / Comment(s): RESTLESS LEG. BURSITIS RIGHT HIP. HAS POSITIVE HEPATITIS C ANTIBODIES. History of Any Multi-Drug Resistant Organisms: None Reported Past Surgical History: Breast Surgery, Hernia Repair, Tubal Ligation Additional Past Surgical History / Comment(s): STEREOTACTIC BREAST BX LEFT. Additional Past Anesthesia/Blood Transfusion Reaction / Comm: COLONOSCOPY. DUE TO COPD SHE WOKE FROM ANESTHESIA COUGHING, CHOKING, SOB SHE WANTS TO ENSURE THAT HER HEAD OF BED WILL BE UP. Past Psychological History: No Psychological Hx Reported Smoking Status: Former smoker Past Alcohol Use History: None Reported Additional Past Alcohol Use History / Comment(s): SMOKED 25 YRS, 1 PPD. Past Drug Use History: None Reported - Past Family History Sister(s) Family Medical History: Cancer Additional Family Medical History / Comment(s): BREAST Medications and Allergies Home Medications Medication Instructions Recorded Confirmed Type Aspirin EC [Ecotrin Low Dose] 81 mg PO HS 10/09/21 10/09/21 History Calcium Carbonate [Calcium] 600 mg PO DAILY 10/09/21 10/09/21 History Cholecalciferol [Vitamin D3 (25 25 mcg PO DAILY 10/09/21 10/09/21 History Mcg = 1000 Iu)] Furosemide [Lasix] 20 mg PO DAILY 10/09/21 10/09/21 History HYDROcodone/APAP 7.5-325MG [[place] 0.5 tab PO TID 10/09/21 10/09/21 History 7.5-325] Ibuprofen [Motrin] 400 mg PO Q8H 10/09/21 10/09/21 History Rosuvastatin [Crestor] 20 mg PO DIRECTED 10/09/21 10/09/21 History Zinc 50 mg PO DAILY 10/09/21 10/09/21 History metFORMIN HCL [Glucophage XR] 750 mg PO W/SUPPER 10/09/21 10/09/21 History Allergies Allergy/AdvReac Type Severity Reaction Status Date / Time prednisone AdvReac SHAKING. Verified 10/09/21 12:44 Physical Exam Vitals: Vital Signs Temp Pulse Pulse Resp BP BP Pulse Ox 10/10/21 13:56 97.6 F 82 19 135/81 96 10/10/21 07:45 19 10/10/21 07:30 97.5 F L 82 19 128/85 94 L 10/10/21 01:34 97.7 F 79 17 125/76 97 10/09/21 20:00 97.6 F 85 18 129/78 95 10/09/21 16:17 98 18 150/96 96 Intake and Output 10/09/21 10/10/21 10/10/21 22:59 06:59 14:59 Other: Weight 90.718 kg General appearance: The patient is alert, oriented, appears in no acute distress. HET: Head is normocephalic and atraumatic. Conjunctiva pink. Sclera anicteric. Neck: Supple without lymphadenopathy. Trachea midline. Heart: S1 S2. Regular rate and rhythm. Lungs: Clear to auscultation. Abdomen: Soft, right upper quadrant tenderness, nondistended with bowel sounds. No guarding or rigidity. Skin: No rashes. No jaundice. Extremities: Normal skin color and turgor. No pedal edema. Neurological: No focal deficits. Alert and oriented x3. Results CBC & Chem 7: 10/09/21 11:22 10/09/21 11:22 Labs: Abnormal Lab Results - Last 24 Hours (Table) 10/09/21 10/09/21 10/10/21 Range/Units 17:36 20:29 07:07 POC Glucose (mg/dL) 227 H 117 H 104 H (75-99) mg/dL 10/10/21 Range/Units 11:02 POC Glucose (mg/dL) 100 H (75-99) mg/dL Comments: CT of abdomen and pelvis show slightly heterogeneous enhancement of liver, nonspecific please correlate with LFTs and hepatic viral serology. Contracted gallbladder. No other definite acute abnormality seen in abdomen or pelvis. Gallbladder ultrasound shows coarse echotexture of liver could be due to underlying hepatic steatosis, hepatocellular disease. Gallbladder contracted. Assessment and Plan (1) Acute hepatitis Narrative/Plan: Patient 66-year-old female admitted for abnormal labs. Patient had noticed that she had dark urine and [place] stools and went to her primary care physician who did blood work and saw that she had elevated LFTs as well as bilirubin. Patient denies any previous history of liver disease. She was recently diagnosed with COVID-19 and treated with antibiotics azithromycin in August as well as Paxlovid. She still was not feeling well and was prescribed Augmentin on 09/24/2021 and just finished last week. Pattern of elevation in her total bilirubin, AST, ALT and alkaline phosphatase is consistent with intrahepatic cholestasis likely related to her Augmentin. Likely enzymes will continue to trend down. Continue to hold off on hepatotoxic medications as well as a atorvastatin. Current Visit: Yes Status: Acute Code(s): B17.9 - ACUTE VIRAL HEPATITIS, UNSPECIFIED SNOMED Code(s): 24845593 Plan: 1. Continue symptomatic and supportive care 2. Daily CMP 3. Avoid hepatotoxic medications 4. Patient to follow-up with gastroenterology to trend LFTs. Likely related to recent Augmentin use with possible underlying fatty liver disease. Thank you for this consultation, we will continue to follow. Dr. Jose J Nguyễn I agree with the dictator's note, documented as a scribe by Sylvie Daley.
[2021-10-10 16:07] LABS: Glucose,Whole Blood 116 mg/dL (75-99)
[2021-10-10 20:34] LABS: Glucose,Whole Blood 163 mg/dL (75-99)
[2021-10-10] MEDS ORDERED: FLUTICASONE 50MCG/SPRAY NASAL 16GM EA NOSTRIL SCH (21:00)
[2021-10-10] MEDS: FLUTICASONE 50MCG/SPRAY NASAL 16GM EA NOSTRIL SCH (21:02)
[2021-10-11] MEDS: SODIUM CHLORIDE 0.9% 1,000 ML IV SCH (05:15)
[2021-10-11 06:54] LABS: Glucose,Whole Blood 107 mg/dL (75-99)
[2021-10-11] MEDS: INSULIN ASPART (NovoLOG) 100 UNIT/ML VIAL SQ SCH ×4 (06:58→22:22)
[2021-10-11 09:51] LABS: African American GFR (CKD) 105.4 (60.0-200.0); Albumin 3.8 g/dL (3.8-4.9); Albumin/Globulin Ratio 1.73 (1.60-3.17); Anion Gap 13.2 mmol/L (10.00-18.00); BUN/Creat Ratio 17.86 Ratio (12.00-20.00); Blood Urea Nitrogen 12.5 mg/dL (9.0-27.0); Calcium 9.5 mg/dL (8.7-10.3); Carbon Dioxide 20.8 mmol/L (20.0-27.5); Globulin 2.2 g/dL (1.6-3.3); Non-African American GFR(CKD) 90.9 (60.0-200.0); Potassium 4.5 mmol/L (3.5-5.5); Total Bilirubin 3.6 mg/dL (0.30-1.20)
--- NOTE | 2021-10-11 10:39 | P.PN ---
Subjective Patient was seen and examined. Patient admitted for ablation of elevated liver enzyme and hyperbilirubinemia, acholic stools, post Augmentin use CT of the abdomen shows some fatty liver disease no other acute abnormalities She is up in the chair today, denying any nausea vomiting. She does have some epigastric discomfort but significantly improved. She has been on statin which is discontinued. Viral hepatitis study has been negative so far. Objective - Vital Signs Vital signs: Vital Signs Temp 97.8 F 10/11/21 08:00 Pulse 90 10/11/21 08:00 Resp 18 10/11/21 08:00 BP 134/82 10/11/21 08:00 Pulse Ox 97 10/11/21 08:00 Intake & Output 10/10/21 10/11/21 10/11/21 18:59 06:59 18:59 Intake Total 1080 Balance 1080 Intake: Oral 1080 Other: # Voids 2 2 # Bowel Movements 1 0 - Exam Gen. awake alert oriented 3 no Distress Head and neck: Theodore diced sclera, oropharyngeal mucosa is clear no neck masses no JVD Lungs: Clear to auscultation Cardiovascular regular rhythm and rate Abdomen: Nondistended nontender no flank tenderness to right upper quadrant tenderness no cyanosis Extremities: No peripheral edema no cough tenderness no cyanosis Skin:no angiomata. no rashes or hematomas Neurological: No asterixis - Labs CBC & Chem 7: 10/09/21 11:22 10/11/21 05:25 Labs: Abnormal Lab Results - Last 24 Hours (Table) 10/10/21 10/10/21 10/10/21 Range/Units 11:02 16:04 20:32 POC Glucose (mg/dL) 100 H 116 H 163 H (75-99) mg/dL Total Bilirubin (0.30-1.20) mg/dL AST (13-35) U/L ALT (8-44) U/L Alkaline Phosphatase (41-126) U/L Total Protein (6.2-8.2) g/dL 10/11/21 10/11/21 Range/Units 05:25 06:53 POC Glucose (mg/dL) 107 H (75-99) mg/dL Total Bilirubin 3.60 H (0.30-1.20) mg/dL AST 167 H (13-35) U/L ALT 392 H (8-44) U/L Alkaline Phosphatase 654 H (41-126) U/L Total Protein 6.0 L (6.2-8.2) g/dL Assessment and Plan Plan: #Acute liver injury, cytotoxic and obstructive pattern CT abdomen: No obvious source of obstruction, fatty liver disease Hepatitis viral studies: Negative Further workup as per gastroenterology, may need further evaluation for PBC, ultimately hepatitis, malignancy Could be related to recent Augmentin use Avoid hepatotoxins Liver enzymes trending down Continue per GI recommendations #History of COPD Not exacerbated, not home oxygen #Type 2 diabetes mellitus without long-term current use of insulin Continue sliding scale and diabetic diet
[2021-10-11 11:26] LABS: Ceruloplasmin 27.9 mg/dL (20.0-60.0)
[2021-10-11 11:30] LABS: Glucose,Whole Blood 88 mg/dL (75-99)
[2021-10-11 11:37] LABS: Alpha Fetoprotein, Tumor Mkr <1.82 ng/mL (0.00-7.90)
--- NOTE | 2021-10-11 12:23 | P.PN ---
Subjective Progress Note Date: 10/11/21 Principal diagnosis: Elevated LFTs 66-year-old female seen today as a follow-up for elevated LFTs. Patient was admitted from her PCP with concerns of hyperbilirubinemia, with elevation and her ALT and AST. Patient denied any previous history of liver disease. No previous history of alcohol abuse. She was recently diagnosed with COVID-19 and was given antibiotics delayed as well as Augmentin which she finished last week. Prior to that she was on a azithromycin. She is denying any abdominal pain, nausea or vomiting. She had noticed that she was having dark urine and pale stools which prompted her to see her physician. Today she states she is feeling better. Repeat labs came back with total bilirubin 3.6 AST 167 ALT 392 alkaline phosphatase 654 which are all improved. AFP tumor marker was less than 1.8 to liver serology negative to date. Objective - Vital Signs Vital signs: Vital Signs Temp 97.8 F 10/11/21 08:00 Pulse 90 10/11/21 08:00 Resp 18 10/11/21 08:00 BP 134/82 10/11/21 08:00 Pulse Ox 97 10/11/21 08:00 Intake & Output 10/10/21 10/11/21 10/11/21 18:59 06:59 18:59 Intake Total 1080 Balance 1080 Intake: Oral 1080 Other: # Voids 2 2 # Bowel Movements 1 0 - Exam General appearance: The patient is alert, oriented, appears in no acute distress. HET: Head is normocephalic and atraumatic. Conjunctiva pink. Sclera anicteric. Neck: Supple without lymphadenopathy. Abdomen: Soft, obese, mild tenderness of the upper abdomen or hernia, nondistended with bowel sounds. No guarding or rigidity. Extremities: Normal skin color and turgor. No pedal edema Skin: No rashes, no jaundice Neurological: No focal deficits. Alert and oriented -3. - Labs CBC & Chem 7: 10/09/21 11:22 10/11/21 05:25 Labs: Abnormal Lab Results - Last 24 Hours (Table) 10/10/21 10/10/21 10/10/21 Range/Units 11:02 16:04 20:32 POC Glucose (mg/dL) 100 H 116 H 163 H (75-99) mg/dL 10/11/21 Range/Units 06:53 POC Glucose (mg/dL) 107 H (75-99) mg/dL Assessment and Plan (1) Acute hepatitis Narrative/Plan: Patient 66-year-old female admitted for abnormal labs. Patient had noticed that she had dark urine and harrison stools and went to her primary care physician who did blood work and saw that she had elevated LFTs as well as bilirubin. Patient denies any previous history of liver disease. She was recently diagnosed with COVID-19 and treated with antibiotics azithromycin in August as well as Paxlovid. She still was not feeling well and was prescribed Augmentin on 09/24/2021 and just finished last week. Pattern of elevation in her total bilirubin, AST, ALT and alkaline phosphatase is consistent with intrahepatic cholestasis likely related to her Augmentin. Likely enzymes will continue to trend down. Continue to hold off on hepatotoxic medications as well as a atorvastatin. Current Visit: Yes Status: Acute Code(s): B17.9 - ACUTE VIRAL HEPATITIS, UNSPECIFIED SNOMED Code(s): 70035775 Plan: 1. Continue symptomatic and supportive care 2. Daily CMP 3. Avoid hepatotoxic medications 4. If LFTS stable or improve may discharge tomorrow 5. Patient to follow-up with gastroenterology to trend LFTs. Likely related to recent Augmentin use with possible underlying fatty liver disease. Thank you for allowing us to participate in the care of the patient, the GI service will sign off, gastroenterology will not be available at the hospital this weekend and through next week. If further evaluation by gastroenterology is required the patient will need transfer as per the primary team's discretion. Dr. Jose J Nguyễn I agree with the dictator's note, documented as a scribe by Sylvie Daley.
[2021-10-11 15:51] LABS: Anti-Smith Ab Interp NEGATIVE (NEGATIVE)
[2021-10-11 16:51] LABS: Glucose,Whole Blood 119 mg/dL (75-99)
[2021-10-11 21:46] LABS: Glucose,Whole Blood 126 mg/dL (75-99)
[2021-10-11] MEDS: FLUTICASONE 50MCG/SPRAY NASAL 16GM EA NOSTRIL SCH (22:31)
[2021-10-12] MEDS: SODIUM CHLORIDE 0.9% 1,000 ML IV SCH ×2 (01:24→10:03)
[2021-10-12 02:57] VITALS: RESP 16
[2021-10-12 07:20] LABS: Glucose,Whole Blood 104 mg/dL (75-99)
[2021-10-12 08:26] VITALS: BP 138/75; PULSE 82; TEMP 98.5
[2021-10-12 09:25] LABS: African American GFR (CKD) 105.4 (60.0-200.0); Albumin 3.9 g/dL (3.8-4.9); Albumin/Globulin Ratio 1.63 (1.60-3.17); Anion Gap 8.9 mmol/L (10.00-18.00); BUN/Creat Ratio 19.57 Ratio (12.00-20.00); Blood Urea Nitrogen 13.7 mg/dL (9.0-27.0); Calcium 10.1 mg/dL (8.7-10.3); Carbon Dioxide 24.1 mmol/L (20.0-27.5); Globulin 2.4 g/dL (1.6-3.3); Non-African American GFR(CKD) 90.9 (60.0-200.0); Potassium 4.5 mmol/L (3.5-5.5); Total Bilirubin 5.4 mg/dL (0.30-1.20); Total Protein 6.3 g/dL (6.2-8.2)
[2021-10-12] MEDS: INSULIN ASPART (NovoLOG) 100 UNIT/ML VIAL SQ SCH ×2 (10:02→12:35)
[2021-10-12] MEDS ORDERED: IBUPROFEN 200 MG TAB PO STA (10:59)
[2021-10-12 11:20] LABS: Glucose,Whole Blood 137 mg/dL (75-99)
--- NOTE | 2021-10-12 14:33 | P.DS ---
Providers Date of admission: 10/09/21 15:01 Expected date of discharge: 10/12/21 Attending physician: Leland Kim MD Consults: 10/09/21 14:10 Consult Physician Urgent Consulting Provider: Flora Nguyễn Consult Reason/Comments: hepatitis Do you want consulting provider notified?: Yes Primary care physician: [facility] Course: #Acute liver injury, mixed hepatocellular and cholestatic pattern #History of COPD #Type 2 diabetes mellitus without long-term current use of insulin Patient is a 66-year-old female with a possible echo which was significant for COPD not on home oxygen, diabetes mellitus and hyperlipidemia was recently started on a medication rosuvastatin by her PCP. Patient was evaluated in the emergency department was found to have elevated LFTs AST was found to be 215, ALT 574, alkaline phosphatase 680. Computed tomography scan of the abdomen and pelvis and ultrasound was completed. Ultrasound showed coarse echotexture of the liver with possible underlying hepatic steatosis, postnasal disease. Computed tomography scan of the abdomen and pelvis showed heterogeneous enhancement of the liver, no other definitive acute abnormality seen on the abdomen and pelvis. There was a small left-sided uterine fibroid noted. Patient was admitted to internal medicine, gastrenterology was been consulted from the emergency department. GI believed patients cytotoxic liver enzyme elevation was likely from either augmentin or crestor, and recommended cessation of these drugs with outpatient follow up. Pt will see GI in the next 2 weeks for ongoing recommendations. In the workup, pt had notable findings of elevated CA 19-9, though this is hard to interpret in the setting of acute liver toxicity, pt was counseled on this and to follow up with GI. I spent 34 minutes coordinating this complex discharge Gen: awake, alert HEENT: normocephalic, atraumatic, good hearing acuity, moist mucous membranes Resp: good air exchange, breathing comfortably with no accessory muscle use CVS: good distal perfusion x 4, GI: soft, NTTP, ND : no SPT, no CVAT, doan catheter not present MSK: no pitting edema, no clubbing, +jaundice Neuro: non-focal, moving all extremities Psych: cooperative, euthymic mood Patient Condition at Discharge: Good Plan - Discharge Summary New Discharge Prescriptions: Continue metFORMIN HCL [Glucophage XR] 750 mg PO W/SUPPER Calcium Carbonate [Calcium] 600 mg PO DAILY Ibuprofen [Motrin] 400 mg PO Q8H Furosemide [Lasix] 20 mg PO DAILY Zinc 50 mg PO DAILY Aspirin EC [Ecotrin Low Dose] 81 mg PO HS Cholecalciferol [Vitamin D3 (25 Mcg = 1000 Iu)] 25 mcg PO DAILY HYDROcodone/APAP 7.5-325MG [[place] 7.5-325] 0.5 tab PO TID Discontinued Rosuvastatin [Crestor] 20 mg PO DIRECTED Discharge Medication List Aspirin EC [Ecotrin Low Dose] 81 mg PO HS 10/09/21 [History] Calcium Carbonate [Calcium] 600 mg PO DAILY 10/09/21 [History] Cholecalciferol [Vitamin D3 (25 Mcg = 1000 Iu)] 25 mcg PO DAILY 10/09/21 [History] Furosemide [Lasix] 20 mg PO DAILY 10/09/21 [History] HYDROcodone/APAP 7.5-325MG [[place] 7.5-325] 0.5 tab PO TID 10/09/21 [History] Ibuprofen [Motrin] 400 mg PO Q8H 10/09/21 [History] Zinc 50 mg PO DAILY 10/09/21 [History] metFORMIN HCL [Glucophage XR] 750 mg PO W/SUPPER 10/09/21 [History] Follow up Appointment(s)/Referral(s): Elmira Damian MD [Primary Care Provider] - 1-2 days (office closed at time of discharge. Please call to schedule appointment ) Flora Nguyễn MD [STAFF PHYSICIAN] - 2 Weeks (for follow up of Liver Enzymes.. Please call on Thursday to schedule appointment) Discharge Disposition: HOME SELF-CARE
== END 2021-10-12 13:27 | disposition home or self-care (01) | DRG 443 ==
LOC: EC 10:37 → 4SSUR 15:01
PROVIDERS: ADMIT Internal Medicine; ATTEND Internal Medicine
DX: B17.9 Acute viral hepatitis, unspecified (principal); K76.0 Fatty (change of) liver, not elsewhere classified; B19.20 Unspecified viral hepatitis C without hepatic coma; J44.9 Chronic obstructive pulmonary disease, unspecified; E11.9 Type 2 diabetes mellitus without complications; D25.9 Leiomyoma of uterus, unspecified; K58.9 Irritable bowel syndrome, unspecified; E78.5 Hyperlipidemia, unspecified; G25.81 Restless legs syndrome; M19.90 Unspecified osteoarthritis, unspecified site; Z79.82 Long term (current) use of aspirin; Z79.84 Long term (current) use of oral hypoglycemic drugs; Z79.899 Other long term (current) drug therapy; Z86.16 Personal history of COVID-19; Z87.891 Personal history of nicotine dependence; Z87.19 Personal history of other diseases of the digestive system; Z98.51 Tubal ligation status; Z87.2 Personal history of diseases of the skin and subcutaneous tissue; Z87.39 Personal history of other diseases of the musculoskeletal system and connective tissue; Z98.890 Other specified postprocedural states; Z88.8 Allergy status to other drugs, medicaments and biological substances; Z80.3 Family history of malignant neoplasm of breast
CPT/HCPCS: 36415; 74177; 76705; 80053; 80074; 81001; 82103; 82105; 82150; 82390; 83516; 83605; 83690; 85025; 85610; 85730; 86038; 86235; 86301; 99285

== ENCOUNTER → 2021-10-25 | Outpatient (CLI) | payer MEDICARE ==
[2021-10-25 19:13] LABS: HCT 38.7 % (37.2-46.3); HGB 11.5 g/dL (12.0-15.0); MCH 31.3 pg (27.0-32.0); MCHC 29.7 g/dL (32.0-37.0); MCV 105.4 fL (80.0-97.0); Mean Platelet Volume 12.9 fL (9.5-12.2); NRBC Per 100 WBC 0 /100 WBCS (0.0-0.0); Platelet Count 411 X 10*3/uL (140-440); RBC 3.67 X 10*6/uL (4.10-5.20); RDW 15.4 % (11.5-14.5); WBC 9.82 X 10*3/uL (4.50-10.00)
[2021-10-25 19:37] LABS: Cancer Antigen 19-9 64.7 U/mL (0.0-34.9)
[2021-10-25 19:54] LABS: Basophils # (A) 0.16 X 10*3/uL (0.00-0.10); Basophils % (A) 1.6 %; Eosinophils # (A) 0.91 X 10*3/uL (0.04-0.35); Eosinophils % (A) 9.3 %; Lymphocytes # (A) 3.01 X 10*3/uL (0.90-5.00); Lymphocytes % (A) 30.7 %; Monocytes # (A) 0.96 X 10*3/uL (0.20-1.00); Monocytes % (A) 9.8 %; Neutrophils # (A) 4.58 X 10*3/uL (1.80-7.70); Neutrophils % (A) 46.6 %; Target Cells 2+
[2021-10-25 20:01] LABS: Protein, Total 6.4 g/dL (6.2-8.2)
[2021-10-25 20:02] LABS: Ceruloplasmin 48.6 mg/dL (20.0-60.0)
[2021-10-25 21:03] LABS: African American GFR (CKD) 105.4 (60.0-200.0); Albumin 3.8 g/dL (3.8-4.9); Albumin/Globulin Ratio 1.19 (1.60-3.17); BUN/Creat Ratio 28.29 Ratio (12.00-20.00); Blood Urea Nitrogen 19.8 mg/dL (9.0-27.0); Calcium 10.1 mg/dL (8.7-10.3); Globulin 3.2 g/dL (1.6-3.3); Non-African American GFR(CKD) 90.9 (60.0-200.0); Potassium 3.9 mmol/L (3.5-5.5); Total Bilirubin 6.2 mg/dL (0.30-1.20)
== END | disposition home or self-care (01) ==
LOC: LABWHC1 10:05
PROVIDERS: ATTEND Internal Medicine Gastroenterology
DX: K71.0 Toxic liver disease with cholestasis (principal)
CPT/HCPCS: 36415; 80053; 82103; 82390; 82728; 83516; 83540; 83550; 84165; 85025; 86038; 86301

== ENCOUNTER → 2021-12-03 | Outpatient (CLI) | payer MEDICARE ==
[2021-12-03 18:25] LABS: Basophils # (A) 0.12 X 10*3/uL (0.00-0.10); Basophils % (A) 1.6 %; Eosinophils # (A) 0.49 X 10*3/uL (0.04-0.35); Eosinophils % (A) 6.4 %; HCT 39.8 % (37.2-46.3); HGB 12.6 g/dL (12.0-15.0); Immature Grans, Automated 0.7 %; Lymphocytes # (A) 2.69 X 10*3/uL (0.90-5.00); Lymphocytes % (A) 35.2 %; MCH 32.1 pg (27.0-32.0); MCHC 31.7 g/dL (32.0-37.0); MCV 101.3 fL (80.0-97.0); Mean Platelet Volume 11.1 fL (9.5-12.2); Monocytes # (A) 0.71 X 10*3/uL (0.20-1.00); Monocytes % (A) 9.3 %; NRBC Per 100 WBC 0 /100 WBCS (0.0-0.0); Neutrophils # (A) 3.58 X 10*3/uL (1.80-7.70); Neutrophils % (A) 46.8 %; Platelet Count 381 X 10*3/uL (140-440); RBC 3.93 X 10*6/uL (4.10-5.20); RDW 14.4 % (11.5-14.5); WBC 7.64 X 10*3/uL (4.50-10.00)
[2021-12-03 18:37] LABS: African American GFR (CKD) 67.7 (60.0-200.0); Albumin 4.7 g/dL (3.8-4.9); Albumin/Globulin Ratio 2.11 (1.60-3.17); Anion Gap 13.5 mmol/L (10.00-18.00); BUN/Creat Ratio 20.99 Ratio (12.00-20.00); Blood Urea Nitrogen 21.2 mg/dL (9.0-27.0); Calcium 9.9 mg/dL (8.7-10.3); Carbon Dioxide 24.7 mmol/L (20.0-27.5); Globulin 2.2 g/dL (1.6-3.3); Non-African American GFR(CKD) 58.4 (60.0-200.0); Potassium 4.3 mmol/L (3.5-5.5); Total Bilirubin 0.7 mg/dL (0.30-1.20); Total Protein 6.9 g/dL (6.2-8.2)
== END | disposition home or self-care (01) ==
LOC: LABWHC1 13:07
PROVIDERS: ATTEND Internal Medicine Gastroenterology
DX: K71.0 Toxic liver disease with cholestasis (principal)
CPT/HCPCS: 36415; 80053; 85025

== ENCOUNTER → 2022-06-18 | Outpatient (CLI) | payer MEDICARE ==
--- NOTE | 2022-06-18 15:14 | CTL ---
EXAMINATION TYPE: CT Low Dose Lung DATE OF EXAM ORDERED: 06/18/2022 HISTORY: Tobacco use. Lung cancer screening CT DLP: 86.[address] CTDI: 2.4 mGy Automated exposure control for dose reduction was used. SCREENING VISIT: Subsequent COMPARISON: 10/04/2018 TECHNIQUE: Low dose computed tomography scan was performed through the chest at 1 mm thick sections a nd reconstructed images in the coronal plane at [address] DIAGNOSTIC QUALITY: Satisfactory FINDINGS: LUNG NODULES: None. LUNGS: COPD: Severity: None Fibrosis: Severity: None Lymph nodes: None Other findings: None RIGHT PLEURAL SPACE: Effusion: None Calcification: None Thickening: None Pneumothorax: None LEFT PLEURAL SPACE: Effusion: None Calcification: None Thickening: None Pneumothorax: None HEART: Heart Size: Normal Coronary calcification: Mild Pericardial effusion: None OTHER FINDINGS: Upper abdomen: Normal Bony thorax: Normal Supraclavicular region: Normal Other: Ascending thoracic aorta at the level the main pulmonary artery measures 3.9 cm. The main pul monary artery at the bifurcation measures 2.9 cm. IMPRESSION: 1. Negative low-dose CT chest screening FOLLOW UP CT CHEST RECOMMENDATION: Low dose CT chest one year CT LUNG RAD: 1
== END | disposition home or self-care (01) ==
LOC: RADCTMAIN 08:54
PROVIDERS: ATTEND Family Medicine
DX: Z12.2 Encounter for screening for malignant neoplasm of respiratory organs (principal); Z87.891 Personal history of nicotine dependence
CPT/HCPCS: 71271

== ENCOUNTER → 2022-06-27 | Outpatient (CLI) | payer MEDICARE ==
--- NOTE | 2022-06-27 11:01 | MM ---
Reason for Exam: Follow-up at short interval from prior study. Last mammogram was performed 1 year(s) and 1 month(s) ago. Patient History: Menarche at age 15. First Full-Term at age 18. Postmenopausal. Breast cancer, age 60. Previous chest radiation therapy at age 60. 2016, Lumpectomy on the Left side. 01/08/2016, Malignant Core Biopsy on the left side. 12/25/2015, Malignant Core Biopsy on the left side. 2016, Radiation Therapy on the left side. Sister had breast cancer, age 73. Prior Study Comparison: 08/16/2019 Bilateral Diagnostic Mammogram, [facility]. 06/18/2020 Bilateral Diagnostic Mammogram, [facility]. 06/18/2021 Bilateral Diagnostic Mammogram, [facility]. Tissue Density: There are scattered fibroglandular densities. Findings: Analyzed By CAD. No new suspicious cluster microcalcifications within either breast. No new suspicious masses. Chronic nodularity within the right breast. Postsurgical and post therapy changes to the left breast is unchanged. Overall Assessment: Benign, BI-RAD 2 Management: Screening Mammogram of both breasts in 1 year. A clinical breast exam by your physician is recommended on an annual basis and results should be correlated with mammographic findings. This exam should not preclude additional follow-up of suspicious palpable abnormalities. Results were given to the patient verbally at the time of exam. Electronically signed and approved by: Migue Quan D.O.
== END | disposition home or self-care (01) ==
LOC: RADMAMWWP 10:37
PROVIDERS: ATTEND Family Medicine
DX: R92.2 Inconclusive mammogram (principal); Z78.0 Asymptomatic menopausal state; Z80.3 Family history of malignant neoplasm of breast; Z98.890 Other specified postprocedural states; Z85.3 Personal history of malignant neoplasm of breast
CPT/HCPCS: 77066

== ENCOUNTER 2022-11-10 07:54 | Day surgery (SDC) | payer MEDICARE ==
[~2022-11-10 07:54] MED LIST: ALPRAZolam 0.25 MG TAB PO PRN; ALPRAZolam 0.5 MG TAB PO PRN; ASPIRIN 325 MG TAB PO STA; NITROGLYCERIN SL TABS 0.4 MG TAB SUBLINGUAL PRN
[2022-11-10 08:16] LABS: Glucose,Whole Blood 88 mg/dL (70-110)
[2022-11-10] MEDS: SODIUM CHLORIDE 0.9% 1,000 ML in EMPTY BAG 1 BAG IV SCH ×3 (08:16→21:10)
[2022-11-10] MEDS ORDERED: VERAPAMIL 2.5 MG/ML 2 ML AMP ONE (08:40)
[2022-11-10] MEDS ORDERED: HEPARIN SODIUM 1,000 UN/ML (10ML VL) ONE (08:53)
[2022-11-10] MEDS ORDERED: MIDAZOLAM 2 MG/2 ML VIAL IVP ONE ×2 (09:13→10:02)
[2022-11-10] MEDS ORDERED: LIDOCAINE 1% INJ 10MG/ML (5 ML VIAL-PF) SQ ONE (09:17)
[2022-11-10] MEDS ORDERED: VERAPAMIL SYRINGE (5 MG/10 ML) INTRAARTER ONE (09:18)
[2022-11-10] MEDS ORDERED: fentaNYL (PF) 50 MCG/ML 2 ML AMP ONE (09:20)
[2022-11-10] MEDS ORDERED: fentaNYL (PF) 50 MCG/ML 2 ML AMP IVP ONE (09:21)
[2022-11-10] MEDS ORDERED: HEPARIN SODIUM 1,000 UN/ML (10ML VL) IVP ONE ×2 (09:21→09:34)
[2022-11-10] MEDS ORDERED: HYDROmorphone 0.5 MG/0.5 ML SYRINGE IVP ONE (09:22)
[2022-11-10] MEDS ORDERED: IOPAMIDOL-370 100ML BTL INJ ONE ×2 (09:59→10:12)
[2022-11-10] MEDS ORDERED: NITROGLYCERIN 1000MCG/10ML SYRINGE INTRAARTER ONE (10:04)
[2022-11-10] MEDS ORDERED: PHENYLEPHRINE-0.9% NACL SYG 1,000 MCG/10 ML SYRINGE IV ONE (10:08)
[2022-11-10] MEDS ORDERED: PRASUGREL 10 MG TAB ONE ×2 (10:09→10:10)
[2022-11-10] MEDS ORDERED: PRASUGREL 10 MG TAB PO ONE (10:12)
[2022-11-10] MEDS ORDERED: RX INFO: IV CONTRAST WAS GIVEN 1 EACH MISC MISCELLANE PRN (10:14)
[2022-11-10] MEDS ORDERED: ATROPINE SULFATE 0.1 MG/ML 10ML SYRINGE IV PRN (10:14)
[2022-11-10] MEDS ORDERED: NITROGLYCERIN SL TABS 0.4 MG TAB SUBLINGUAL PRN (10:14)
[2022-11-10] MEDS ORDERED: MAG HYDROX/AL HYDROX/SIMETH 30 ML CUP PO PRN (10:14)
[2022-11-10] MEDS ORDERED: ZOLPIDEM 5 MG TAB PO PRN (10:14)
[2022-11-10] MEDS ORDERED: SODIUM CHLORIDE 0.9% 1,000 ML in EMPTY BAG 1 BAG IV SCH (10:15)
--- NOTE | 2022-11-10 10:20 | P.PCN ---
Date of Procedure: 11/10/22 Operative Findings: CARDIAC CATHETERIZATION AND PERCUTANEOUS CORONARY INTERVENTION PERFORMING PHYSICIAN: Farhan Vasquez MD, [facility] PROCEDURE PERFORMED: 1. Selective right and left coronary angiogram 2. Left heart catheterization 3. Successful stenting of proximal LCX using 4.0 x 18 mm Xience INDIO with an excellent angiographic results and with adjunctive use of cardiac imaging INDICATION: Chest discomfort concerning for angina COMPLICATION: None APPROACH: Right radial artery LEVEL OF SEDATION: Moderate with the sedation time off 55 minutes PROCEDURE DESCRIPTION: After obtaining an informed consent the patient was brought to the cardiac label press operator. The right radial artery was cannulated using micropuncture technique, the micro-puncture wire passed easily then I placed a 6-[place] sheath. I gave the patient 2 mg of verapamil intra-arterial and a total of 7000 use of heparin intravenous. Selective right and left coronary angiogram was performed using JR4 and JL 3.5 catheters and then left heart catheterization was performed using pigtail catheter. After that I did intervene on the left circumflex. SELECTIVE CORONARY ANGIOGRAM: The right coronary artery: Medium caliber vessel nondominant vessel appears to be angiographically normal Left main: Is angiographically normal. The left circumflex: Large caliber vessel and a dominant vessel. The proximal LCx has a tight lesion appeared to be in the range of 70% between the bifurcation of first and second obtuse marginal branches. Distally bifurcates into PDA and PLV branches and both appeared to be angiographically normal The left anterior descending artery: Large caliber vessel appears to be angiographically normal. Gives rise into a diagonal branch seems to be normal as well HEMODYNAMICS: LVEDP was 12 mmHg was no significant gradient across aortic valve PCI OF THE LCx: Anticoagulation was initiated using heparin with continuous ACT monitoring. Brown bsequently admitted into selective main using JL 3.5 guide. I did wire it using a run-through wire. I did also wired using a whisper wire because the LCx was extremely tortuous. Predilatation was performed using 3.5 x 12 mm balloon. Attempting advancing 4.0 x 18 mm stent was unsuccessful in spite of using double wire and in spite of using guide liner. After that I was able to exchange one of the wire into a mail man wire and with that I was able to advance a stent to the circumflex where the stent was positioned under fluoroscopy guidance and deployed under 10 isabel for 20 seconds with the following angiogram showing excellent angiographic results. The procedure was completed was no complication CONCLUSION: Severe disease involving the proximal LCx. I did perform successful stenting of the LCx POSTPROCEDURE MANAGEMENT: 1. Dual antiplatelet therapy using aspirin and Effient for 12 month 2. Aggressive cholesterol control 3. Follow-up with the patient
[2022-11-10 11:52] LABS: Glucose,Whole Blood 208 mg/dL (70-110)
[2022-11-10] MEDS: IBUPROFEN 800 MG TAB PO SCH ×2 (12:10→19:30)
[2022-11-10 14:13] VITALS: BMI 34.7
[2022-11-10 16:43] LABS: Glucose,Whole Blood 129 mg/dL (70-110)
[2022-11-10 20:08] LABS: Glucose,Whole Blood 103 mg/dL (70-110)
[2022-11-11 06:01] LABS: Glucose,Whole Blood 81 mg/dL (70-110)
[2022-11-11] MEDS: IBUPROFEN 800 MG TAB PO SCH ×2 (06:34→12:01)
[2022-11-11 07:44] VITALS: RESP 18; TEMP 97.6
[2022-11-11 07:45] LABS: African American GFR (CKD) >90 (>60 ml/min/1.73 sqM); Non-African American GFR(CKD) >90 (>60 ml/min/1.73 sqM)
[2022-11-11] MEDS ORDERED: FENOFIBRATE 54 MG TAB PO SCH (09:00)
[2022-11-11] MEDS ORDERED: METOPROLOL SUCCINATE (ER) 25 MG TAB.ER.24H PO SCH (09:00)
[2022-11-11] MEDS ORDERED: [UNRECOGNIZED DRUG - OTHER] PO SCH (09:00)
[2022-11-11] MEDS ORDERED: NON FORMULARY DRUG (Omega-3 Fatty Acids [Omega-3] 1,000 MG Capsule) PO SCH (09:00)
[2022-11-11] MEDS ORDERED: MULTIVITAMINS, THERA 1 EACH TAB PO SCH (09:00)
[2022-11-11] MEDS ORDERED: PRASUGREL 10 MG TAB PO SCH (09:00)
[2022-11-11 11:17] VITALS: BP 139/88; PULSE 69
[2022-11-11 11:38] LABS: Glucose,Whole Blood 85 mg/dL (70-110)
--- NOTE | 2022-11-11 12:41 | P.DS ---
Providers Expected date of discharge: 11/11/22 Attending physician: Farhan Vasquez Consults: 11/10/22 10:14 Consult Physician Routine Consulting Provider: [facility] Consult Reason/Comments: Post Interventional Patient Do you want consulting provider notified?: Already Contacted Primary care physician: [facility] Course: History of present illness: This is a 67-year-old female patient with past medical history of diabetes, hypertension, hyperlipidemia and smoking, aortic stenosis as well as dilated thoracic aorta, history of breast cancer and family history of coronary artery disease. Patient was having intermittent episodes of chest discomfort and pressure along with shortness of breath with exertion but improved with rest. Her symptoms were concerning for coronary artery disease and patient was brought into [facility] for cardiac catheterization. Patient underwent cardiac catheterization yesterday finding severe disease involving the proximal LCx status post successful stenting. Patient has been started on Effient. Patient had band on her right wrist and subsequently developed swelling of her wrist and hand and fingers. This was removed this morning with some improvement in patient's been elevating the right hand. She denies having chest pain or shortness of breath. She denies lightheadedness or dizziness. Physical examination: Gen: This is a 67-year-old female. She is sitting up in a chair and appears to be comfortable and in no acute distress. VS: reviewed HEENT: Head is atraumatic, normocephalic. Pupils equal, round. Sclerae is anicteric. LUNGS: Clear to auscultation. No wheezes or rhonchi. No intercostal retractions. HEART: Regular rate and rhythm. Systolic murmur. ABDOMEN: Soft No tenderness. EXTREMITIES: No pedal edema. Mild Edema to the right hand. NEUROLOGICAL: Patient is awake, alert and oriented x3. Discharge diagnoses: Coronary artery disease status post stent of the LCx Diabetes Hypertension Hyperlipidemia Aortic stenosis Plan: Discharge home today in stable condition. Nurse practitioner note has been reviewed, I agree with documented findings and plan of care. Patient was seen and examined. Plan - Discharge Summary Discharge Rx Participant: No New Discharge Prescriptions: New Prasugrel [Effient] 10 mg PO DAILY #90 tab Aspirin EC [Ecotrin Low Dose] 81 mg PO DAILY #30 tab Continue metFORMIN HCL [Glucophage XR] 750 mg PO W/SUPPER Metoprolol Succinate (ER) [Toprol XL] 25 mg PO DAILY Glusamine(Unk) 1 tab PO DAILY Multivitamins, Thera [Multivitamin (formulary)] 1 tab PO DAILY [place]-3 Fatty Acids [[place]-3] 1,000 mg PO DAILY Fenofibrate Nanocrystallized [Fenofibrate] 48 mg PO DAILY Evolocumab [Repatha Sureclick] 0 mg SQ Q14D Discontinued Ibuprofen [Motrin] 800 mg PO Q8H Discharge Medication List metFORMIN HCL [Glucophage XR] 750 mg PO W/SUPPER 10/09/21 [History] Evolocumab [Repatha Sureclick] 0 mg SQ Q14D 11/07/22 [History] Fenofibrate Nanocrystallized [Fenofibrate] 48 mg PO DAILY 11/07/22 [History] Glusamine(Unk) 1 tab PO DAILY 11/07/22 [History] Metoprolol Succinate (ER) [Toprol XL] 25 mg PO DAILY 11/07/22 [History] Multivitamins, Thera [Multivitamin (formulary)] 1 tab PO DAILY 11/07/22 [History] [place]-3 Fatty Acids [[place]-3] 1,000 mg PO DAILY 11/07/22 [History] Aspirin EC [Ecotrin Low Dose] 81 mg PO DAILY #30 tab 11/11/22 [Rx] Prasugrel [Effient] 10 mg PO DAILY #90 tab 11/11/22 [Rx] Follow up Appointment(s)/Referral(s): Farhan Vasquez MD [STAFF PHYSICIAN] - 11/19/22 4:00 pm Activity/Diet/Wound Care/Special Instructions: Resume metformin on Thu Discharge Disposition: HOME SELF-CARE
== END 2022-11-11 13:28 | disposition home or self-care (01) ==
LOC: CATHCVL 07:54 → 3SCARD 10:10 → CATHCVL 11-11 13:28
PROVIDERS: ATTEND Internal Medicine Interventional Cardiology
DX: I25.10 Atherosclerotic heart disease of native coronary artery without angina pectoris (principal); Z79.02 Long term (current) use of antithrombotics/antiplatelets; Z88.8 Allergy status to other drugs, medicaments and biological substances; I10 Essential (primary) hypertension; E78.5 Hyperlipidemia, unspecified; E11.9 Type 2 diabetes mellitus without complications; I35.0 Nonrheumatic aortic (valve) stenosis; F17.200 Nicotine dependence, unspecified, uncomplicated; I77.810 Thoracic aortic ectasia; Z85.3 Personal history of malignant neoplasm of breast; Z82.49 Family history of ischemic heart disease and other diseases of the circulatory system; Z79.84 Long term (current) use of oral hypoglycemic drugs; Z79.899 Other long term (current) drug therapy
CPT/HCPCS: 94760; 93458; 82565; C9600 ×2; C1769 ×4; C1887 ×2; C1894; C1725; C1753; J2250; J2001; J3010; J1644; J2370; J1170; Q9967

== ENCOUNTER 2023-04-20 08:42 | Emergency (ER) | payer MEDICARE ==
[2023-04-20 09:06] VITALS: RESP 18
[2023-04-20 09:30] LABS: Basophils # (A) 0.1 k/uL (0-0.2); Basophils % (A) 1 %; Eosinophils # (A) 0.5 k/uL (0-0.7); Eosinophils % (A) 5 %; HCT 41.5 % (34.0-46.0); HGB 13.6 gm/dL (11.4-16.0); Lymphocytes # (A) 2.6 k/uL (1.0-4.8); Lymphocytes % (A) 26 %; MCH 32.1 pg (25.0-35.0); MCHC 32.9 g/dL (31.0-37.0); MCV 97.7 fL (80.0-100.0); Mean Platelet Volume 7.8; Monocytes # (A) 0.9 k/uL (0-1.0); Monocytes % (A) 9 %; Neutrophils # (A) 5.5 k/uL (1.3-7.7); Neutrophils % (A) 55 %; Platelet Count 289 k/uL (150-450); RBC 4.25 m/uL (3.80-5.40); RDW 12.3 % (11.5-15.5); WBC 9.8 k/uL (3.8-10.6)
[2023-04-20 09:43] LABS: ALT 21 U/L (4-34); AST 29 U/L (14-36); African American GFR (CKD) 76 (>60 ml/min/1.73 sqM); Albumin 4.2 g/dL (3.5-5.0); Alkaline Phosphatase 62 U/L (38-126); Anion Gap 10 mmol/L; Blood Urea Nitrogen 24 mg/dL (7-17); Calcium 9.8 mg/dL (8.4-10.2); Carbon Dioxide 25 mmol/L (22-30); Chloride 103 mmol/L (98-107); Glucose 118 mg/dL (74-99); Non-African American GFR(CKD) 66 (>60 ml/min/1.73 sqM); Potassium 4.3 mmol/L (3.5-5.1); Sodium 138 mmol/L (137-145); Total Bilirubin 0.5 mg/dL (0.2-1.3)
[2023-04-20] MEDS ORDERED: IBUPROFEN 600 MG TAB PO STA (09:59)
--- NOTE | 2023-04-20 10:06 | ED ---
Skin/Abscess/FB HPI - General Chief complaint: Skin/Abscess/Foreign Body Stated complaint: breast redness Time Seen by Provider: 04/20/23 09:54 Source: patient, RN notes reviewed Mode of arrival: ambulatory Limitations: no limitations - History of Present Illness Initial comments: Patient is 67 her old female presented ER with chief complaint of left breast redness and tenderness. Patient has a past medical history significant for lumpectomy in 2016 for breast cancer. Patient states she noticed her left breast was red, tender, and warm yesterday. Denies any new soaps, lotions, body washes, or laundry soaps. Denies any nipple discharge. Denies any fevers chills or nightsweats. - Related Data Home Medications Medication Instructions Recorded Confirmed metFORMIN HCL [Glucophage XR] 750 mg PO W/SUPPER 10/09/21 11/10/22 Evolocumab [Repatha Sureclick] 0 mg SQ Q14D 11/07/22 11/10/22 Fenofibrate Nanocrystallized 48 mg PO DAILY 11/07/22 11/10/22 [Fenofibrate] Glusamine(Unk) 1 tab PO DAILY 11/07/22 11/10/22 Metoprolol Succinate (ER) [Toprol 25 mg PO DAILY 11/07/22 11/10/22 XL] Multivitamins, Thera [Multivitamin 1 tab PO DAILY 11/07/22 11/10/22 (formulary)] [place]-3 Fatty Acids [Clarks-3] 1,000 mg PO DAILY 11/07/22 11/10/22 Previous Rx's Medication Instructions Recorded Aspirin EC [Ecotrin Low Dose] 81 mg PO DAILY #30 tab 11/11/22 Prasugrel [Effient] 10 mg PO DAILY #90 tab 11/11/22 Allergies Allergy/AdvReac Type Severity Reaction Status Date / Time amoxicillin [From Augmentin] AdvReac Unknown Verified 04/20/23 08:59 clavulanic acid AdvReac Unknown Verified 04/20/23 08:59 [From Augmentin] prednisone AdvReac SHAKING. Verified 04/20/23 08:59 Review of Systems ROS Statement: Those systems with pertinent positive or pertinent negative responses have been documented in the HPI. ROS Other: All systems not noted in ROS Statement are negative. Past Medical History Past Medical History: Cancer, COPD, Diabetes Mellitus, Hyperlipidemia, Liver Disease, Myocardial Infarction ([place]), Osteoarthritis ([place]) Additional Past Medical History / Comment(s): RESTLESS LEG. BURSITIS RIGHT HIP. HAS POSITIVE HEPATITIS C ANTIBODIES. "funny feeling in rt side of chest flutte ry sensation", breast ca left side,per pcp on her ekg showed minor heartattack, Last Myocardial Infarction Date:: unk History of Any Multi-Drug Resistant Organisms: None Reported Past Surgical History: Breast Surgery, Hernia Repair, Tubal Ligation Additional Past Surgical History / Comment(s): STEREOTACTIC BREAST BX LEFT. lumpectomy to lft breast, lymph nodes removed Additional Past Anesthesia/Blood Transfusion Reaction / Comment(s): COLONOSCOPY. DUE TO COPD SHE WOKE FROM ANESTHESIA COUGHING, CHOKING, SOB SHE WANTS TO ENSURE THAT HER HEAD OF BED WILL BE UP. Past Psychological History: Anxiety Smoking Status: Former smoker Past Alcohol Use History: None Reported Past Drug Use History: None Reported - Past Family History Sister(s) Family Medical History: Cancer Additional Family Medical History / Comment(s): BREAST General Exam Limitations: no limitations Skin exam: Present: other (Left breast periareolar erythematous, warm, and indurated. No nipple discharge noted tender to palpitation. surgical scar noted on LOQ of left breast. ) Course Vital Signs 04/20/23 08:56 Temperature 98 F Pulse Rate 72 Respiratory 18 Rate Blood Pressure 131/72 O2 Sat by Pulse 99 Oximetry Medical Decision Making - Medical Decision Making Was pt. sent in by a medical professional or institution (, PA, [employer], urgent care, hospital, or assisted...) When possible be specific @ -No Did you speak to anyone other than the patient for history (EMS, parent, family, police, friend...)? What history was obtained from this source @ -No Did you review nursing and triage notes (agree or disagree)? Why? @ -I reviewed and agree with nursing and triage notes Were old charts reviewed (outside hosp., previous admission, EMS record, old EKG, old radiological studies, urgent care reports/EKG's, assisted records)? Report findings @ -No old charts were reviewed Differential Diagnosis (chest pain, altered mental status, abdominal pain women, abdominal pain men, vaginal bleeding, weakness, fever, dyspnea, syncope, headache, dizziness, GI bleed, back pain, seizure, CVA, palpatations, mental health, musculoskeletal)? @ -Cellulitis, breast abscess, mastitis, breast cancer EKG interpreted by me (3pts min.). @ -None X-rays interpreted by me (1pt min.). @ -None done CT interpreted by me (1pt min.). @ -None done U/S interpreted by me (1pt. min.). @ -Left breast ultrasound significant for hypoechoic irregular mass at 10:00. What testing was considered but not performed or refused? (CT, X-rays, U/S, labs)? Why? @ -None What meds were considered but not given or refused? Why? @ -None Did you discuss the management of the patient with other professionals (professionals i.e. , PA, [employer], lab, RT, psych nurse, social work therapist, child welfare caseworker, teacher, transportation officer, case resource manager)? Give summary @ -No Was smoking cessation discussed for >3mins.? @ -No Was critical care preformed (if so, how long)? @ -No Were there social determinants of health that impacted care today? How? (Homel essness, low income, unemployed, alcoholism, drug addiction, transportation, low edu. Level, literacy, decrease access to med. care, custodial, rehab)? @ -No Was there de-escalation of care discussed even if they declined (Discuss DNR or withdrawal of care, Hospice)? DNR status @ -No What co-morbidities impacted this encounter? (DM, HTN, Smoking, COPD, CAD, Cancer, CVA, ARF, Chemo, Hep., AIDS, mental health diagnosis, sleep apnea, morbid obesity)? @ -None Was patient admitted / discharged? Hospital course, mention meds given and route, prescriptions, significant lab abnormalities, going to OR and other pertinent info. @ -[Discharge. Patient is a 67-year-old female presented ER with chief complaint of left breast redness and tenderness. Patient has a past medical history significant for breast cancer lumpectomy in 2016. Labs were within normal limits. Left breast ultrasound shows hypoechoic irregular mass at 10:00. I spoke with ultrasound directly in the advised of outpatient mammogram as soon as possible. Patient was instructed to return to Dr. Haque's office to schedule a mammogram as soon as possible. Patient will be discharged in stable condition return parameters were discussed. Patient expressed understanding. Undiagnosed new problem with uncertain prognosis? @ -No Drug Therapy requiring intensive monitoring for toxicity (Heparin, Nitro, Insulin, Cardizem)? @ -No Were any procedures done? @ -No Diagnosis/symptom? @ -Breast mass Acute, or Chronic, or Acute on Chronic? @ -Acute Uncomplicated (without systemic symptoms) or Complicated (systemic symptoms)? @ -Uncomplicated Side effects of treatment? @ -No Exacerbation, Progression, or Severe Exacerbation? @ -No Poses a threat to life or bodily function? How? (Chest pain, [place], [place], pneumonia, PE, COPD, DKA, ARF, appy, cholecystitis, CVA, Diverticulitis, Homicidal, Suicidal, threat to staff... and all critical care pts) @ -No - Lab Data Result diagrams: 04/20/23 09:08 04/20/23 09:05 Lab Results 04/20/23 04/20/23 Range/Units 09:05 09:08 WBC 9.8 (3.8-10.6) k/uL RBC 4.25 (3.80-5.40) m/uL Hgb 13.6 (11.4-16.0) gm/dL Hct 41.5 (34.0-46.0) % MCV 97.7 (80.0-100.0) fL MCH 32.1 (25.0-35.0) pg MCHC 32.9 (31.0-37.0) g/dL RDW 12.3 (11.5-15.5) % Plt Count 289 (150-450) k/uL MPV 7.8 Neutrophils % 55 % Lymphocytes % 26 % Monocytes % 9 % Eosinophils % 5 % Basophils % 1 % Neutrophils # 5.5 (1.3-7.7) k/uL Lymphocytes # 2.6 (1.0-4.8) k/uL Monocytes # 0.9 (0-1.0) k/uL Eosinophils # 0.5 (0-0.7) k/uL Basophils # 0.1 (0-0.2) k/uL Sodium 138 (137-145) mmol/L Potassium 4.3 (3.5-5.1) mmol/L Chloride 103 (98-107) mmol/L Carbon Dioxide 25 (22-30) mmol/L Anion Gap 10 mmol/L BUN 24 H (7-17) mg/dL Creatinine 0.91 (0.52-1.04) mg/dL Est GFR (CKD-EPI)AfAm 76 (>60 ml/min/1.73 sqM) Est GFR (CKD-EPI)NonAf 66 (>60 ml/min/1.73 sqM) Glucose 118 H (74-99) mg/dL Calcium 9.8 (8.4-10.2) mg/dL Total Bilirubin 0.5 (0.2-1.3) mg/dL AST 29 (14-36) U/L ALT 21 (4-34) U/L Alkaline Phosphatase 62 (38-126) U/L Total Protein 7.0 (6.3-8.2) g/dL Albumin 4.2 (3.5-5.0) g/dL Disposition Clinical Impression: Breast mass Disposition: HOME SELF-CARE Condition: Stable Additional Instructions: Please return to the Emergency Department if symptoms worsen or any other concerns. Patient advised to follow-up with Dr. Haque for outpatient mammogram as soon as possible. Is patient prescribed a controlled substance at d/c from ED?: No Referrals: Elmira Damian MD [Primary Care Provider] - 1-2 days Maisha Harmon MD [STAFF PHYSICIAN] - 1-2 days Decision Time: 12:10
--- NOTE | 2023-04-20 11:04 | USB ---
Reason for Exam: Clinical finding. Patient History: Menarche at age 15. First Full-Term at age 18. Postmenopausal. Breast cancer, age 60. Previous chest radiation therapy at age 60. 2016, Lumpectomy on the Left side. 01/08/2016, Malignant Core Biopsy on the left side. 12/25/2015, Malignant Core Biopsy on the left side. 2016, Radiation Therapy on the left side. Sister had breast cancer, age 73. Technique: Method: Whole Breast Handheld. Prior Study Comparison: 12/12/2015 Left Diagnostic Ultrasound, [facility]. 06/18/2020 Bilateral Diagnostic Mammogram, [facility]. 06/18/2021 Bilateral Diagnostic Mammogram, [facility]. 06/27/2022 Bilateral MG diagnostic mammo w CAD [facility], [facility]. Findings: The whole breast of the left breast, the axilla of the left breast and the retroareolar of the left breast were scanned. Technique utilized:US breast complete LT Image; Ultrasound imaging of: All 4 quadrants, the retroareolar region and axilla. Postsurgical changes to the left breast at 4:00 4 similar to the nipple. There is no evidence for organizing fluid collection. Hypoechoic irregular mass at 10:00 3 summation nipple measuring 3 x 7 x 3 mm. Overall Assessment: Suspicious, BI-RAD 4 Management: Ultrasound Core Biopsy of the left breast. A clinical breast exam by your physician is recommended on an annual basis and results should be correlated with mammographic findings. This exam should not preclude additional follow-up of suspicious palpable abnormalities. Results were given to the patient verbally at the time of exam. Electronically signed and approved by: George Hall DO
[2023-04-20 12:28] VITALS: BP 137/89; PULSE 74; TEMP 98.1
== END 2023-04-20 12:15 | disposition home or self-care (01) ==
LOC: EC 08:42
DX: N63.0 Unspecified lump in unspecified breast (principal); J44.9 Chronic obstructive pulmonary disease, unspecified; E11.9 Type 2 diabetes mellitus without complications; I21.9 Acute myocardial infarction, unspecified; M19.90 Unspecified osteoarthritis, unspecified site; F41.9 Anxiety disorder, unspecified; Z79.899 Other long term (current) drug therapy; Z88.0 Allergy status to penicillin; Z88.8 Allergy status to other drugs, medicaments and biological substances; Z87.891 Personal history of nicotine dependence
CPT/HCPCS: 36415; 80053; 85025; 99284

== ENCOUNTER → 2023-04-30 | Outpatient (CLI) | payer MEDICARE ==
[2023-04-30 14:27] VITALS: BP 146/90; PULSE 82; RESP 18; TEMP 98.3
--- NOTE | 2023-04-30 14:46 | P.GSHP ---
History of Present Illness H&P Date: 04/30/23 Chief Complaint: history of left breast cancer Shu is a 67 year old whtie female status post left breast lumpectomy and SNB on 01-08-16. Her pathology revealed a 4.5 mm invasive ductal cancer, SNB (-). All margins were (-). DCIS present all margins (-). She was treated with LUCA radiation. She did not have any hormone or chemotherapy. She was seen in the emergency room on [id number]. She was complaining of swelling and erythema of the left breast. Resolved spontaneously without antibiotics or drainage. At that time an ultrasound was done of the left breast. It revealed postsurgical changes. A hypoechoic irregular mass at 10:00 was seen measuring 3 x 7 mm. This was considered suspicious and ultrasound- guided core biopsy was recommended. Did not complain of any new lumps masses or nodules of concern in either breast. Last bilateral mammogram was on 1622 and this was BIRADS 2. She does not feel anything at this time. She did not have any fever or chills. He did have pain near the area of erythema in the left breast. patient had a cardiac stint placed October 2022 liver elevated enzymes related to statin drugs Caffeine: green tea daily nicotine: 1 pack/2 weeks chocolate: occasional BCP: 3 years as a teen hormones: none no antihormone therapy Family history: patient: left breast cancer Hormonal History: menarche: 15 A2, breast fed: yes, age at first live : 18 menopause: 49 Surgical history: 2 C-sections hernia repair Medical History: liver COVID 2020 cardial cath and stint Social History: nicotine: as above alcohol: none drugs: none - Constitutional Constitutional: Denies chills, Denies fever - EENT Comment: bilateral cataracts Eyes: denies blurred vision, denies pain Ears: bilateral: tinnitus, deny: decreased hearing Ears, nose, mouth and throat: Reports headache, Denies sore throat - Breasts Breasts: bilateral: as per HPI - Cardiovascular Cardiovascular: Reports shortness of breath - Respiratory Respiratory: Denies cough, Denies 7 - Gastrointestinal Gastrointestinal: Denies abdominal pain, Denies diarrhea, Denies nausea, Denies vomiting - Genitourinary (Female) Genitourinary: Denies dysuria, Denies hematuria - Menstruation Menstruation: Reports postmenopausal - Musculoskeletal Comment: osteoarthritis Musculoskeletal: Reports myalgias - Integumentary Integumentary: Denies pruritus, Denies rash - Neurological Neurological: Denies numbness, Denies weakness - Psychiatric Psychiatric: Reports anxiety, Denies depression - Endocrine Endocrine: Reports weight change, Denies fatigue - Hematologic/Lymphatic Comment: none - Allergic/Immunologic Allergic/Immunologic: Reports seasonal allergies Past Medical History Past Medical History: Cancer, COPD, Diabetes Mellitus, Hyperlipidemia, Liver Disease, Myocardial Infarction ([place]), Osteoarthritis (OA) Additional Past Medical History / Comment(s): RESTLESS LEG. BURSITIS RIGHT HIP. HAS POSITIVE HEPATITIS C ANTIBODIES. "funny feeling in rt side of chest fluttery sensation", breast ca left side,per pcp on her ekg showed minor heartattack, Last Myocardial Infarction Date:: unk History of Any Multi-Drug Resistant Organisms: None Reported Past Surgical History: Breast Surgery, Hernia Repair, Tubal Ligation Additional Past Surgical History / Comment(s): STEREOTACTIC BREAST BX LEFT. lumpectomy to lft breast, lymph nodes removed Additional Past Anesthesia/Blood Transfusion Reaction / Comment(s): COLONOSCOPY. DUE TO COPD SHE WOKE FROM ANESTHESIA COUGHING, CHOKING, SOB SHE WANTS TO ENSURE THAT HER HEAD OF BED WILL BE UP. Past Psychological History: Anxiety Smoking Status: Former smoker Past Alcohol Use History: None Reported Additional Past Alcohol Use History / Comment(s): SMOKED 25 YRS, 1 PPD. Past Drug Use History: None Reported - Past Family History Sister(s) Family Medical History: Cancer Additional Family Medical History / Comment(s): BREAST Medications and Allergies Home Medications Medication Instructions Recorded Confirmed Type metFORMIN HCL [Glucophage XR] 750 mg PO W/SUPPER 10/09/21 11/10/22 History Evolocumab [Repatha Sureclick] 0 mg SQ Q14D 11/07/22 11/10/22 History Fenofibrate Nanocrystallized 48 mg PO DAILY 11/07/22 11/10/22 History [Fenofibrate] Glusamine(Unk) 1 tab PO DAILY 11/07/22 11/10/22 History Metoprolol Succinate (ER) [Toprol 25 mg PO DAILY 11/07/22 11/10/22 History XL] Multivitamins, Thera [Multivitamin 1 tab PO DAILY 11/07/22 11/10/22 History (formulary)] [place]-3 Fatty Acids [[place]-3] 1,000 mg PO DAILY 11/07/22 11/10/22 History Aspirin EC [Ecotrin Low Dose] 81 mg PO DAILY #30 tab 11/11/22 Rx Prasugrel [Effient] 10 mg PO DAILY #90 tab 11/11/22 Rx Allergies Allergy/AdvReac Type Severity Reaction Status Date / Time amoxicillin [From Augmentin] AdvReac Unknown Verified 04/30/23 14:12 clavulanic acid AdvReac Unknown Verified 04/30/23 14:12 [From Augmentin] prednisone AdvReac SHAKING. Verified 04/30/23 14:12 Surgical - Exam Vital Signs Temp Pulse Resp BP Pulse Ox 98.3 F 82 18 146/90 98 04/30/23 14:12 04/30/23 14:12 04/30/23 14:12 04/30/23 14:12 04/30/23 14:12 - General no distress - Eyes normal ocular movement - Neck trachea midline - Respiratory normal respiratory effort, clear to auscultation - Cardiovascular Heart Sounds: normal: S1, S2 - Abdomen Abdomen: soft, non tender, no guarding, no rigid, no rebound - Integumentary normal turgor - Neurologic no disoriented, no combative - Musculoskeletal normal turgor - Psychiatric oriented to time, oriented to person, oriented to place, speech is normal, memory intact Breast Exam: BRA: 3XL inspection: Asymmetry of the breast related to lumpectomy left breast, bilateral grade 3 ptosis Palpation: Right breast: Multiple positional exam fibrocystic changes no dominant masses or nodules of concern Right axilla: No adenopathy of concern left breast: Multi-positional exam post surgical changes and postradiation changes no discrete dominant masses or nodules of concern Left axilla: No adenopathy of concern Results Ultrasound results personally reviewed; mammogram from June 2022 personally reviewed Assessment and Plan Assessment: Impression: Resolved cellulitis left breast Radiographic abnormality left breast Status post left breast lumpectomy and radiation therapy for stage I invasive ductal carcinoma in 2015 Plan: Ultrasound-guided core biopsy area of concern left breast Follow-up after ultrasound-guided core biopsy stop Effient and aspirin as per mfts CC: Dr. Damian
== END ==
LOC: WWCWWP 13:49
PROVIDERS: ATTEND Surgery
DX: R92.8 Other abnormal and inconclusive findings on diagnostic imaging of breast (principal); I25.2 Old myocardial infarction; E11.9 Type 2 diabetes mellitus without complications; J44.9 Chronic obstructive pulmonary disease, unspecified; E78.5 Hyperlipidemia, unspecified; M19.90 Unspecified osteoarthritis, unspecified site; Z86.16 Personal history of COVID-19; Z87.891 Personal history of nicotine dependence; Z88.0 Allergy status to penicillin; Z88.8 Allergy status to other drugs, medicaments and biological substances; Z85.3 Personal history of malignant neoplasm of breast; Z79.84 Long term (current) use of oral hypoglycemic drugs; Z79.82 Long term (current) use of aspirin; Z92.3 Personal history of irradiation

== ENCOUNTER → 2023-05-13 | Day surgery (SDC) | payer MEDICARE ==
--- NOTE | 2023-05-26 09:40 | MM ---
Reason for Exam: Post Procedure Mammogram. Last screening mammogram was performed 10 month(s) ago. Patient History: Menarche at age 15. First Full-Term at age 18. Postmenopausal. Breast cancer, age 60. Previous chest radiation therapy at age 60. 2016, Lumpectomy on the Left side. 01/08/2016, Malignant Core Biopsy on the left side. 12/25/2015, Malignant Core Biopsy on the left side. 2016, Radiation Therapy on the left side. Sister had breast cancer, age 73. Prior Study Comparison: 08/16/2019 Bilateral Diagnostic Mammogram, [facility]. 06/18/2020 Bilateral Diagnostic Mammogram, [facility]. 06/18/2021 Bilateral Diagnostic Mammogram, [facility]. 06/27/2022 Bilateral MG diagnostic mammo w CAD [facility], [facility]. 04/20/2023 Left US breast LT, [facility]. Tissue Density: Left: There are scattered fibroglandular densities. Pathology Description: Location: 10 o'clock. Marker Left Behind. Needle Type: Mammotome Cores: 5 Gauge: 13 The procedure of ultrasound guided core biopsy was explained to the patient. Benefits, alternatives, and risks were discussed. An informed consent was then obtained. Initial ultrasound assessment demonstrates the 7 mm slightly lobulated elongated area at the 10:00 position. The patient was placed in supine positioning for imaging and for the procedure. The overlying skin was prepped and draped in usual sterile fashion. Lidocaine was used as anesthetic into the skin and subcutaneous tissue up to area of concern in the 10:00 left breast. Under ultrasound guidance, a 13-gauge vacuum-assisted mammotome Elite biopsy gun device was used to obtain 5 core samples. Following this, a Hydromark coil clip was left in lesion. The patient tolerated the procedure well without any immediate complication. The patient was kept in the radiology department for short stay after the procedure and then discharged home in stable condition. Postprocedure mammogram: The patient was transferred to mammography for physician ordered post procedure mammogram for clip placement verification. Post procedure mammogram shows coil clip at 8:00 anterior left breast at the site of subtle mammographic focal asymmetry. Patient's known lumpectomy site laterally. IMPRESSION: Successful, uncomplicated ultrasound guided core biopsy of a small 7 mm lesion, ultrasound correlate to a subtle mammographic density at the 10:00 left breast. Full pathology results to follow. Pathology Results: Result: Malignant, Ductal carcinoma in situ, solid type. LEFT BREAST, 10:00, NEEDLE CORE BIOPSY: Pending consultation, see addendum/final diagnosis. Notes Sections examined show a fragmented papillary lesion with associated fibrosis and duct proliferation with mild atypia. CK5/6 and Calponin immunostains performed on block A1 and evaluated with appropriate positive controls highlight a myoepithelial layer surrounding the ductal and tubular structures within background fibrous stroma. CK5/6 shows predominantly negative to focal positive staining of the intraductal epithelial cells. The differential diagnosis based on the overall features includes atypical papilloma versus papilloma with DCIS. Given the findings, the case will be sent for expert consultation and final characterization to the [facility]. An addendum will follow. 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 Please see comment. Overall Assessment: Malignant Assessment: MG diagnostic mammo LT wo CAD. - Left: Known biopsy proven malignancy, BI-RAD 6. Management: Surgical Consultation of the left breast. Electronically signed and approved by: Alfie Burton M.D. Radiologist
== END ==
LOC: RADUSWWP 07:25
PROVIDERS: ATTEND Surgery
DX: C50.912 Malignant neoplasm of unspecified site of left female breast (principal); R92.8 Other abnormal and inconclusive findings on diagnostic imaging of breast; Z78.0 Asymptomatic menopausal state; Z17.0 Estrogen receptor positive status [ER+]; Z80.3 Family history of malignant neoplasm of breast; Z92.3 Personal history of irradiation
CPT/HCPCS: 88305; 88342; 88341; 77065; 19083; A4648

== ENCOUNTER → 2023-05-29 | Outpatient (CLI) | payer MEDICARE ==
[2023-05-29 08:04] VITALS: BP 144/84; PULSE 80; RESP 17; TEMP 97.8
--- NOTE | 2023-05-29 08:05 | P.PN ---
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 Her pathology revealed a 4.5 mm invasive ductal cancer, SNB (-). All margins were (-). DCIS present all margins (-). She was treated with LUCA radiation. She did have arimidex from 2015 to 2019. She was seen in the emergency room on [id number]. She was complaining of swelling and erythema of the left breast. Resolved spontaneously without antibiotics or drainage. At that time an ultrasound was done of the left breast. It revealed postsurgical changes. A hypoechoic irregular mass at 10:00 was seen measuring 3 x 7 mm. This was considered suspicious and ultrasound- guided core biopsy was recommended. Did not complain of any new lumps masses or nodules of concern in either breast. Last bilateral mammogram was on 1622 and this was BIRADS 2. She does not feel anything at this time. She did not have any fever or chills. He did have pain near the area of erythema in the left breast. patient had a cardiac stint placed October 2022 liver elevated enzymes related to statin drugs She underwent an ultrasound core biopsy on 05-13-23 and this was (+) for DCIS. Focus about 7 mm. tolerated the procedure without difficulty. The mammogram and ultrasound reviewed with Dr. Burton. Caffeine: green tea daily nicotine: 1 pack/2 weeks chocolate: occasional BCP: 3 years as a teen hormones: none no antihormone therapy Family history: patient: left breast cancer Hormonal History: menarche: 15 A2, breast fed: yes, age at first live : 18 menopause: 49 Surgical history: 2 C-sections hernia repair Medical History: liver COVID 2020 cardial cath and stint Social History: nicotine: as above alcohol: none drugs: none - Constitutional Constitutional: Denies chills, Denies fever - EENT Comment: bilateral cataracts Eyes: denies blurred vision, denies pain Ears: bilateral: tinnitus, deny: decreased hearing Ears, nose, mouth and throat: Reports headache, Denies sore throat - Breasts Breasts: bilateral: as per HPI - Cardiovascular Cardiovascular: Reports shortness of breath - Respiratory Respiratory: Denies cough, Denies 7 - Gastrointestinal Gastrointestinal: Denies abdominal pain, Denies diarrhea, Denies nausea, Denies vomiting - Genitourinary (Female) Genitourinary: Denies dysuria, Denies hematuria - Menstruation Menstruation: Reports postmenopausal - Musculoskeletal Comment: osteoarthritis Musculoskeletal: Reports myalgias - Integumentary Integumentary: Denies pruritus, Denies rash - Neurological Neurological: Denies numbness, Denies weakness - Psychiatric Psychiatric: Reports anxiety, Denies depression - Endocrine Endocrine: Reports weight change, Denies fatigue - Hematologic/Lymphatic Comment: none - Allergic/Immunologic Allergic/Immunologic: Reports seasonal allergies Past Medical History Past Medical History: Cancer, COPD, Diabetes Mellitus, Hyperlipidemia, Liver Disease, Myocardial Infarction ([place]), Osteoarthritis (OA) Additional Past Medical History / Comment(s): RESTLESS LEG. BURSITIS RIGHT HIP. HAS POSITIVE HEPATITIS C ANTIBODIES. "funny feeling in rt side of chest fluttery sensation", breast ca left side,per pcp on her ekg showed minor heartattack, Last Myocardial Infarction Date:: unk History of Any Multi-Drug Resistant Organisms: None Reported Past Surgical History: Breast Surgery, Hernia Repair, Tubal Ligation Additional Past Surgical History / Comment(s): STEREOTACTIC BREAST BX LEFT. lumpectomy to lft breast, lymph nodes removed Additional Past Anesthesia/Blood Transfusion Reaction / Comment(s): COLONOSCOPY. DUE TO COPD SHE WOKE FROM ANESTHESIA COUGHING, CHOKING, SOB SHE WANTS TO ENSURE THAT HER HEAD OF BED WILL BE UP. Past Psychological History: Anxiety Smoking Status: Former smoker Past Alcohol Use History: None Reported Additional Past Alcohol Use History / Comment(s): SMOKED 25 YRS, 1 PPD. Past Drug Use History: None Reported - Past Family History Sister(s) Family Medical History: Cancer Additional Family Medical History / Comment(s): BREAST Medications and Allergies Home Medications Medication Instructions Recorded Confirmed Type metFORMIN HCL [Glucophage XR] 750 mg PO W/SUPPER 10/09/21 11/10/22 History Evolocumab [Repatha Sureclick] 0 mg SQ Q14D 11/07/22 11/10/22 History Fenofibrate Nanocrystallized 48 mg PO DAILY 11/07/22 11/10/22 History [Fenofibrate] Glusamine(Unk) 1 tab PO DAILY 11/07/22 11/10/22 History Metoprolol Succinate (ER) [Toprol 25 mg PO DAILY 11/07/22 11/10/22 History XL] Multivitamins, Thera [Multivitamin 1 tab PO DAILY 11/07/22 11/10/22 History (formulary)] Lyman-3 Fatty Acids [Lyman-3] 1,000 mg PO DAILY 11/07/22 11/10/22 History Aspirin EC [Ecotrin Low Dose] 81 mg PO DAILY #30 tab 11/11/22 Rx Prasugrel [Effient] 10 mg PO DAILY #90 tab 11/11/22 Rx Allergies Allergy/AdvReac Type Severity Reaction Status Date / Time amoxicillin [From Augmentin] AdvReac Unknown Verified 04/30/23 14:12 clavulanic acid AdvReac Unknown Verified 04/30/23 14:12 [From Augmentin] prednisone AdvReac SHAKING. Verified 04/30/23 14:12 Objective - Vital Signs Vital signs: Vital Signs Temp 97.8 F 05/29/23 07:49 Pulse 80 05/29/23 07:49 Resp 17 05/29/23 07:49 BP 144/84 05/29/23 07:49 Pulse Ox 98 05/29/23 07:49 FiO2 Intake & Output 05/28/23 05/29/23 05/29/23 18:59 06:59 18:59 Weight 87.543 kg - Constitutional General appearance: Present: cooperative - EENT Eyes: Present: EOMI ENT: Present: hearing grossly normal - Neck Neck: Present: normal ROM - Respiratory Respiratory: bilateral: CTA - Cardiovascular Heart sounds: normal: S1, S2 - Integumentary Integumentary: Present: normal turgor - Musculoskeletal Musculoskeletal: Present: gait normal - Psychiatric Psychiatric: Present: A&O x's 3, appropriate affect, intact judgment & insight - Additional findings Additional findings: Breast Exam: BRA: 3XL inspection: Asymmetry of the breast related to lumpectomy left breast, bilateral grade 3 ptosis Palpation: Right breast: Multiple positional exam fibrocystic changes no dominant masses or nodules of concern Right axilla: No adenopathy of concern left breast: Multi-positional exam post surgical changes and postradiation changes no discrete dominant masses or nodules of concern Left axilla: No adenopathy of concern Assessment and Plan Assessment: Impression: Resolved cellulitis left breast Radiographic abnormality left breast/status post ultrasound-guided core biopsy positive for DCIS done on [id number]; this was at the 10 o'clock position Status post left breast lumpectomy and radiation therapy for stage I invasive ductal carcinoma in 2016 this was at the 4 o'clock position Plan: Ultrasound-guided core biopsy area of concern left breast DCIS Presentation of case at tumor board Follow-up after ultrasound-guided core biopsy stop Effient and aspirin as per therapeutic mentor CC: Dr. Damian
== END ==
LOC: WWCWWP 07:29
PROVIDERS: ATTEND Surgery
DX: D05.12 Intraductal carcinoma in situ of left breast (principal); E11.9 Type 2 diabetes mellitus without complications; L03.116 Cellulitis of left lower limb; C80.1 Malignant (primary) neoplasm, unspecified; J44.9 Chronic obstructive pulmonary disease, unspecified; E78.5 Hyperlipidemia, unspecified; K76.89 Other specified diseases of liver; I25.2 Old myocardial infarction; M19.90 Unspecified osteoarthritis, unspecified site; F17.200 Nicotine dependence, unspecified, uncomplicated; G25.81 Restless legs syndrome; Z80.3 Family history of malignant neoplasm of breast; Z85.3 Personal history of malignant neoplasm of breast; Z79.02 Long term (current) use of antithrombotics/antiplatelets; Z86.16 Personal history of COVID-19; Z90.12 Acquired absence of left breast and nipple; F41.9 Anxiety disorder, unspecified; Z88.0 Allergy status to penicillin; Z88.8 Allergy status to other drugs, medicaments and biological substances; Z88.1 Allergy status to other antibiotic agents; Z79.84 Long term (current) use of oral hypoglycemic drugs; Z79.899 Other long term (current) drug therapy; Z79.82 Long term (current) use of aspirin

== ENCOUNTER → 2023-06-30 | Outpatient (CLI) | payer MEDICARE ==
--- NOTE | 2023-07-05 11:01 | CTL ---
EXAMINATION TYPE: CT Low Dose Lung DATE OF EXAM: 06/30/2023 9:24 AM CLINICAL INDICATION:Female, 67 years old with history of Z12.2 Lung cancer screening; Personal hx tob acco use, 1 pk per day x50 years, is trying to quit, hx breast ca, pneumonia , history of tobacco use . COMPARISON: 06/18/2022 CT Low Dose Lung TECHNIQUE: CT scan of the chest obtained without contrast from approximately the lung apices through the upper abdomen. Axial, coronal and sagittal reformatted images were obtained. Low dose technique w as utilized for nodule screening purposes. CT DLP: 101.90 mGycm, Automated exposure control for dose reduction was used. CT Contrast: IV contrast used: None. Oral contrast used: None. FINDINGS: Lack of intravenous contrast and low dose technique limits the evaluation of the vascular and soft ti ssue structures. LUNGS: No evidence of pulmonary fibrosis. No evidence of focal consolidation, pneumothorax or pleural effusion. There are questionably minimal emphysematous changes in the lung apices. Nodules: RUL: None RML: None RLL: None ANDREE: None LLL: None PLEURA: No sizeable pleural effusion or pneumothorax. AIRWAY: Central airways are patent. LOWER NECK: No significant findings. MEDIASTINUM: No evidence of enlarged nodes.. HEART: Normal heart size. Moderate coronary artery calcification and/or stents greatest on the left. No appreciable pericardial effusion. VASCULATURE: Moderate atherosclerotic calcifications of the aorta and branches. Ascending aorta is 3 .6 CM, descending is 2.8 CM. Aorta is considered normal in size. Pulmonary trunk measures 2.6 CM, no rmal in size. Vessels otherwise not further assessed without contrast. SOFT TISSUES/LYMPH NODES: Partially seen clips in the left breast and mild skin thickening; breast fi nding should be correlated with findings of routine breast imaging. UPPER ABDOMEN: No significant findings. Radiodensities in the upper ventral abdominal wall may be fro m herniorrhaphy. Few colonic diverticula are seen. MUSCULOSKELETAL: Mild disc degeneration changes are present throughout the thoracolumbar spine. No a cute findings. IMPRESSION: 1. No clinically significant pulmonary nodules. CT LUNG RAD AND CT CHEST RECOMMENDATION: Lung-Rad 1 Negative: Continue annual screening with LDCT in 12 months. C Modifier (Personal history of lung cancer?): No. S Modifier (Other clinically significant or potentially significant findings?): No. Other significant or potentially significant abnormalities: None. Recommend smoking cessation (if current smoker), or continuation of smoking cessation (if prior smoke r). Annual screening for lung cancer with low-dose computed tomography is recommended in adults ages 55 to 77 years who have a 30 pack-year smoking history and currently smoke or have quit within the pa st 15 years. Screening should be discontinued once a person has not smoked for 15 years or develops a health problem that substantially limits life expectancy or the ability or willingness to have curat cody lung surgery. Lung rads 2021 [email or web address]
== END | disposition home or self-care (01) ==
LOC: RADCTMAIN 09:01
PROVIDERS: ATTEND Family Medicine
DX: Z12.2 Encounter for screening for malignant neoplasm of respiratory organs (principal); Z87.891 Personal history of nicotine dependence
CPT/HCPCS: 71271

== ENCOUNTER → 2023-06-30 | Outpatient (CLI) | payer MEDICARE ==
--- NOTE | 2023-06-30 09:54 | MM ---
Reason for Exam: Follow-up at short interval from prior study. Last screening mammogram was performed 12 month(s) ago. Patient History: Menarche at age 15. First Full-Term at age 18. Postmenopausal. Breast cancer, age 60. Breast cancer, left, age 67. Previous chest radiation therapy at age 60. 05/13/2023, Malignant US biopsy breast VAD LT on the left side. 2015, Lumpectomy on the Left side. 01/08/2016, Malignant Core Biopsy on the left side. 12/25/2015, Malignant Core Biopsy on the left side. 2016, Radiation Therapy on the left side. Sister had breast cancer, age 73. Prior Study Comparison: 08/16/2019 Bilateral Diagnostic Mammogram, [facility]. 06/18/2020 Bilateral Diagnostic Mammogram, [facility]. 06/18/2021 Bilateral Diagnostic Mammogram, [facility]. 06/27/2022 Bilateral MG diagnostic mammo w CAD [facility], [facility]. 04/20/2023 Left US breast LT, [facility]. 05/13/2023 Left MG diagnostic mammo LT wo CAD., [facility]. Tissue Density: There are scattered fibroglandular densities. Findings: Analyzed By CAD. Pattern appears stable. Chronic nodularities on the right. There is a prior lumpectomy site with surgical clips. This area has spiculation. Patient is currently scheduled for surgery and has an appointment surgeon. A second core marker is in lower inner aspect anterior left breast. No suspicious groups of microcalcifications, spiculated or lobular masses, architectural distortion or other secondary signs of malignancy are mammographically apparent. Overall Assessment: Known biopsy proven malignancy, BI-RAD 6 Management: Surgical Consultation of the left breast. Screening Mammogram of the right breast in 1 year. A negative mammogram report should not preclude additional follow up of suspicious palpable abnormalities. Patient should continue monthly self breast exam. A clinical breast exam by your physician is recommended on an annual basis and results should be correlated with mammographic findings. Electronically signed and approved by: Terrell Gore D.O. Radiologis
== END | disposition home or self-care (01) ==
LOC: RADMAMWWP 09:16
PROVIDERS: ATTEND Surgery
DX: R92.323 Mammographic fibroglandular density, bilateral breasts (principal); Z80.3 Family history of malignant neoplasm of breast; Z78.0 Asymptomatic menopausal state; Z85.3 Personal history of malignant neoplasm of breast
CPT/HCPCS: 77066; G0279; 77062

== ENCOUNTER → 2023-07-09 | Outpatient (CLI) | payer MEDICARE ==
--- NOTE | 2023-07-09 16:00 | P.PN ---
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 Her pathology revealed a 4.5 mm invasive ductal cancer, SNB (-). All margins were (-). DCIS present all margins (-). She was treated with ALEKSANDRA radiation. She did have arimidex from 2015 to 2019. She was seen in the emergency room on [id number]. She was complaining of swelling and erythema of the left breast. Resolved spontaneously without antibiotics or drainage. At that time an ultrasound was done of the left breast. It revealed postsurgical changes. A hypoechoic irregular mass at 10:00 was seen measuring 3 x 7 mm. This was considered suspicious and ultrasound- guided core biopsy was recommended. Did not complain of any new lumps masses or nodules of concern in either breast. Last bilateral mammogram was on and this was BIRADS 6, she was noted to have prior lumpectomy site with surgical clips. A second core marker was in the lower inner aspect of the left breast. Most recent biopsy was 10:00 left breast. This was ER/LA positive DCIS. She does not feel anything at this time. She did not have any fever or chills. She did have pain near the area of erythema in the left breast. She had a computed tomography scan of the chest done on which was negative for any evidence of lung cancer. patient had a cardiac stint placed October 2022 liver elevated enzymes related to statin drugs She underwent an ultrasound core biopsy of the 10 o'clock position on 05-13-23 and this was (+) for DCIS. Focus about 7 mm. tolerated the procedure without difficulty. The mammogram and ultrasound reviewed with Dr. Burton. Caffeine: green tea daily nicotine: 1 pack/2 weeks chocolate: occasional BCP: 3 years as a teen hormones: none no antihormone therapy Family history: patient: left breast cancer Hormonal History: menarche: 15 A2, breast fed: yes, age at first live : 18 menopause: 49 Surgical history: 2 C-sections hernia repair left breast lumpectomy and SNB in 2015 Medical History: liver COVID 2020 cardiac cath and stint Social History: nicotine: as above alcohol: none drugs: none - Constitutional Constitutional: Denies chills, Denies fever - EENT Comment: bilateral cataracts Eyes: denies blurred vision, denies pain Ears: bilateral: tinnitus, deny: decreased hearing Ears, nose, mouth and throat: Reports headache, Denies sore throat - Breasts Breasts: bilateral: as per HPI - Cardiovascular Cardiovascular: Reports shortness of breath - Respiratory Respiratory: Denies cough - Gastrointestinal Gastrointestinal: Denies abdominal pain, Denies diarrhea, Denies nausea, Denies vomiting - Genitourinary (Female) Genitourinary: Denies dysuria, Denies hematuria - Menstruation Menstruation: Reports postmenopausal - Musculoskeletal Comment: osteoarthritis Musculoskeletal: Reports myalgias - Integumentary Integumentary: Denies pruritus, Denies rash - Neurological Neurological: Denies numbness, Denies weakness - Psychiatric Psychiatric: Reports anxiety, Denies depression - Endocrine Endocrine: Reports weight change, Denies fatigue - Hematologic/Lymphatic Comment: none - Allergic/Immunologic Allergic/Immunologic: Reports seasonal allergies Past Medical History Past Medical History: Cancer, COPD, Diabetes Mellitus, Hyperlipidemia, Liver Disease, Myocardial Infarction ([place]), Osteoarthritis ([place]) Additional Past Medical History / Comment(s): RESTLESS LEG. BURSITIS RIGHT HIP. HAS POSITIVE HEPATITIS C ANTIBODIES. "funny feeling in rt side of chest fluttery sensation", breast ca left side,per pcp on her ekg showed minor heartattack, Last Myocardial Infarction Date:: unk History of Any Multi-Drug Resistant Organisms: None Reported Past Surgical History: Breast Surgery, Hernia Repair, Tubal Ligation Additional Past Surgical History / Comment(s): STEREOTACTIC BREAST BX LEFT. lumpectomy to lft breast, lymph nodes removed Additional Past Anesthesia/Blood Transfusion Reaction / Comment(s): COLONOSCOPY. DUE TO COPD SHE WOKE FROM ANESTHESIA COUGHING, CHOKING, SOB SHE WANTS TO ENSURE THAT HER HEAD OF BED WILL BE UP. Past Psychological History: Anxiety Smoking Status: Former smoker Past Alcohol Use History: None Reported Additional Past Alcohol Use History / Comment(s): SMOKED 25 YRS, 1 PPD. Past Drug Use History: None Reported - Past Family History Sister(s) Family Medical History: Cancer Additional Family Medical History / Comment(s): BREAST Medications and Allergies Home Medications Medication Instructions Recorded Confirmed Type metFORMIN HCL [Glucophage XR] 750 mg PO W/SUPPER 10/09/21 11/10/22 History Evolocumab [Repatha Sureclick] 0 mg SQ Q14D 11/07/22 11/10/22 History Fenofibrate Nanocrystallized 48 mg PO DAILY 11/07/22 11/10/22 History [Fenofibrate] Glusamine(Unk) 1 tab PO DAILY 11/07/22 11/10/22 History Metoprolol Succinate (ER) [Toprol 25 mg PO DAILY 11/07/22 11/10/22 History XL] Multivitamins, Thera [Multivitamin 1 tab PO DAILY 11/07/22 11/10/22 History (formulary)] Linden-3 Fatty Acids [Linden-3] 1,000 mg PO DAILY 11/07/22 11/10/22 History Aspirin EC [Ecotrin Low Dose] 81 mg PO DAILY #30 tab 11/11/22 Rx Prasugrel [Effient] 10 mg PO DAILY #90 tab 11/11/22 Rx Allergies Allergy/AdvReac Type Severity Reaction Status Date / Time amoxicillin [From Augmentin] AdvReac Unknown Verified 04/30/23 14:12 clavulanic acid AdvReac Unknown Verified 04/30/23 14:12 [From Augmentin] prednisone AdvReac SHAKING. Verified 04/30/23 14:12 Objective - Constitutional General appearance: Present: cooperative - EENT Eyes: Present: EOMI ENT: Present: hearing grossly normal - Neck Neck: Present: normal ROM - Respiratory Respiratory: bilateral: CTA - Cardiovascular Heart sounds: normal: S1, S2 - Gastrointestinal General gastrointestinal: Present: soft - Integumentary Integumentary: Present: normal turgor - Musculoskeletal Musculoskeletal: Present: gait normal - Psychiatric Psychiatric: Present: A&O x's 3, appropriate affect, intact judgment & insight - Additional findings Additional findings: Breast Exam: BRA: 3XL inspection: Asymmetry of the breast related to lumpectomy left breast, bilateral grade 3 ptosis Palpation: Right breast: Multiple positional exam fibrocystic changes no dominant masses or nodules of concern Right axilla: No adenopathy of concern left breast: Multi-positional exam post surgical changes and postradiation changes no discrete dominant masses or nodules of concern Left axilla: No adenopathy of concern Assessment and Plan Assessment: Impression: Breast 10:00 ductal carcinoma in situ Radiographic abnormality left breast/status post ultrasound-guided core biopsy positive for DCIS done on [id number]; this was at the 10 o'clock position Status post left breast lumpectomy and radiation therapy for stage I invasive ductal carcinoma in 2016 this was at the 4 o'clock position Plan: Ultrasound-guided core biopsy area of concern left breast DCIS Presentation of case at tumor board Follow-up after ultrasound-guided core biopsy stop Effient and aspirin as per marketing co op This was presented at tumor board and [id number] She had a bilateral mammogram on 1923 which did not reveal any additional lesions in the left breast and no lesions of concern in the right breast Risks and benefits of the procedure discussed with the patient and her . Risks include but are not limited to bleeding, infection, reaction to the anesthetic. Additionally if the patient's margins were to be positive to understands the further tissue acquisition may be necessary. I have discussed in detail the concerns in this reduction mammoplasty incision which include: 1. Prior smoking history 2. Prior radiation via the Aleksandra to a portion of the left breast 3. Cardiac history on aspirin and Effient The patient and her understand and she would like to have an attempt at a reduction mammoplasty. Additionally risks of the axillary node sampling and possible axillary node dissection are discussed. These include but are not limited to inability to identify a sentinel node secondary to prior axillary surgery. Possible decreased sensation to the inner arm. Possible lymphedema. Possible injury to the thoracodorsal and long thoracic nerves. The patient understands and wishes to proceed. She was scheduled for surgery in the near future. CC: Dr. Damian
== END ==
LOC: WWCWWP 15:11
PROVIDERS: ATTEND Surgery
DX: D05.12 Intraductal carcinoma in situ of left breast (principal); E11.9 Type 2 diabetes mellitus without complications; E78.5 Hyperlipidemia, unspecified; G25.81 Restless legs syndrome; I25.2 Old myocardial infarction; J44.9 Chronic obstructive pulmonary disease, unspecified; M19.90 Unspecified osteoarthritis, unspecified site; Z17.0 Estrogen receptor positive status [ER+]; Z79.02 Long term (current) use of antithrombotics/antiplatelets; Z80.3 Family history of malignant neoplasm of breast; Z85.3 Personal history of malignant neoplasm of breast; Z86.16 Personal history of COVID-19; Z87.891 Personal history of nicotine dependence; Z88.0 Allergy status to penicillin; Z88.1 Allergy status to other antibiotic agents; Z88.8 Allergy status to other drugs, medicaments and biological substances; Z92.3 Personal history of irradiation

== ENCOUNTER → 2023-08-06 | Outpatient (CLI) | payer MEDICARE ==
[2023-08-06 14:32] VITALS: BP 132/86; PULSE 99; RESP 15; TEMP 98.1
--- NOTE | 2023-08-06 14:39 | P.PN ---
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 Her pathology revealed a 4.5 mm invasive ductal cancer, SNB (-). All margins were (-). DCIS present all margins (-). She was treated with ALEKSANDRA radiation. She did have arimidex from 2015 to 2019. She was seen in the emergency room on [id number]. She was complaining of swelling and erythema of the left breast. Resolved spontaneously without antibiotics or drainage. At that time an ultrasound was done of the left breast. It revealed postsurgical changes. A hypoechoic irregular mass at 10:00 was seen measuring 3 x 7 mm. This was considered suspicious and ultrasound- guided core biopsy was recommended. Did not complain of any new lumps masses or nodules of concern in either breast. Last bilateral mammogram was on and this was BIRADS 6, she was noted to have prior lumpectomy site with surgical clips. A second core marker was in the lower inner aspect of the left breast. Most recent biopsy was 10:00 left breast. This was ER/VA positive DCIS. She does not feel anything at this time. She did not have any fever or chills. She did have pain near the area of erythema in the left breast. Bilateral mammogram 06-30-23 known recent biopsy proven left breast cancer, no other lesions of concern either breast She had a computed tomography scan of the chest done on 1923 which was negative for any evidence of lung cancer. The patient was scheduled for a lumpectomy and SNB however this was cancelled as the patient tested (+) for Influenza A, she is feeling better at this time patient had a cardiac stint placed October 2022 liver elevated enzymes related to statin drugs She underwent an ultrasound core biopsy of the 10 o'clock position on 05-13-23 and this was (+) for DCIS. Focus about 7 mm. tolerated the procedure without difficulty. The mammogram and ultrasound reviewed with Dr. Burton. Caffeine: green tea daily nicotine: 1 pack/2 weeks chocolate: occasional BCP: 3 years as a teen hormones: none no antihormone therapy Family history: patient: left breast cancer Hormonal History: menarche: 15 A2, breast fed: yes, age at first live : 18 menopause: 49 Surgical history: 2 C-sections hernia repair left breast lumpectomy and SNB in 2016 Medical History: liver COVID 2020 cardiac cath and stint Social History: nicotine: as above alcohol: none drugs: none - Constitutional Constitutional: Denies chills, Denies fever - EENT Comment: bilateral cataracts Eyes: denies blurred vision, denies pain Ears: bilateral: tinnitus, deny: decreased hearing Ears, nose, mouth and throat: Reports headache, Denies sore throat - Breasts Breasts: bilateral: as per HPI - Cardiovascular Cardiovascular: Reports shortness of breath - Respiratory Respiratory: Denies cough - Gastrointestinal Gastrointestinal: Denies abdominal pain, Denies diarrhea, Denies nausea, Denies vomiting - Genitourinary (Female) Genitourinary: Denies dysuria, Denies hematuria - Menstruation Menstruation: Reports postmenopausal - Musculoskeletal Comment: osteoarthritis Musculoskeletal: Reports myalgias - Integumentary Integumentary: Denies pruritus, Denies rash - Neurological Neurological: Denies numbness, Denies weakness - Psychiatric Psychiatric: Reports anxiety, Denies depression - Endocrine Endocrine: Reports weight change, Denies fatigue - Hematologic/Lymphatic Comment: none - Allergic/Immunologic Allergic/Immunologic: Reports seasonal allergies Past Medical History Past Medical History: Cancer, COPD, Diabetes Mellitus, Hyperlipidemia, Liver Disease, Myocardial Infarction (SC), Osteoarthritis (OA) Additional Past Medical History / Comment(s): RESTLESS LEG. BURSITIS RIGHT HIP. HAS POSITIVE HEPATITIS C ANTIBODIES. "funny feeling in rt side of chest fluttery sensation", breast ca left side,per pcp on her ekg showed minor heartattack, Last Myocardial Infarction Date:: unk History of Any Multi-Drug Resistant Organisms: None Reported Past Surgical History: Breast Surgery, Hernia Repair, Tubal Ligation Additional Past Surgical History / Comment(s): STEREOTACTIC BREAST BX LEFT. lumpectomy to lft breast, lymph nodes removed Additional Past Anesthesia/Blood Transfusion Reaction / Comment(s): COLONOSCOPY. DUE TO COPD SHE WOKE FROM ANESTHESIA COUGHING, CHOKING, SOB SHE WANTS TO ENSURE THAT HER HEAD OF BED WILL BE UP. Past Psychological History: Anxiety Smoking Status: Former smoker Past Alcohol Use History: None Reported Additional Past Alcohol Use History / Comment(s): SMOKED 25 YRS, 1 PPD. Past Drug Use History: None Reported - Past Family History Sister(s) Family Medical History: Cancer Additional Family Medical History / Comment(s): BREAST Medications and Allergies Home Medications Medication Instructions Recorded Confirmed Type metFORMIN HCL [Glucophage XR] 750 mg PO W/SUPPER 10/09/21 11/10/22 History Evolocumab [Repatha Sureclick] 0 mg SQ Q14D 11/07/22 11/10/22 History Fenofibrate Nanocrystallized 48 mg PO DAILY 11/07/22 11/10/22 History [Fenofibrate] Glusamine(Unk) 1 tab PO DAILY 11/07/22 11/10/22 History Metoprolol Succinate (ER) [Toprol 25 mg PO DAILY 11/07/22 11/10/22 History XL] Multivitamins, Thera [Multivitamin 1 tab PO DAILY 11/07/22 11/10/22 History (formulary)] [place]-3 Fatty Acids [[place]-3] 1,000 mg PO DAILY 11/07/22 11/10/22 History Aspirin EC [Ecotrin Low Dose] 81 mg PO DAILY #30 tab 11/11/22 Rx Prasugrel [Effient] 10 mg PO DAILY #90 tab 11/11/22 Rx Allergies Allergy/AdvReac Type Severity Reaction Status Date / Time amoxicillin [From Augmentin] AdvReac Unknown Verified 04/30/23 14:12 clavulanic acid AdvReac Unknown Verified 04/30/23 14:12 [From Augmentin] prednisone AdvReac SHAKING. Verified 04/30/23 14:12 Objective - Constitutional General appearance: Present: cooperative - EENT Eyes: Present: EOMI ENT: Present: hearing grossly normal - Neck Neck: Present: normal ROM - Respiratory Respiratory: bilateral: CTA - Cardiovascular Heart sounds: normal: S1, S2 - Gastrointestinal General gastrointestinal: Present: soft - Integumentary Integumentary: Present: normal turgor - Musculoskeletal Musculoskeletal: Present: gait normal - Psychiatric Psychiatric: Present: A&O x's 3, appropriate affect, intact judgment & insight - Additional findings Additional findings: Breast Exam: BRA: 3XL inspection: Asymmetry of the breast related to lumpectomy left breast, bilateral grade 3 ptosis Palpation: Right breast: Multiple positional exam fibrocystic changes no dominant masses or nodules of concern Right axilla: No adenopathy of concern left breast: Multi-positional exam post surgical changes and postradiation changes no discrete dominant masses or nodules of concern, tattoo left breast Left axilla: No adenopathy of concern Assessment and Plan Assessment: Impression: Breast 10:00 ductal carcinoma in situ Radiographic abnormality left breast/status post ultrasound-guided core biopsy positive for DCIS done on [id number]; this was at the 10 o'clock position Status post left breast lumpectomy and radiation therapy for stage I invasive ductal carcinoma in 2016 this was at the 4 o'clock position Plan: stop Effient and aspirin as per doughnut batter mixer This was presented at tumor board and [id number] She had a bilateral mammogram on 1923 which did not reveal any additional lesions in the left breast and no lesions of concern in the right breast Risks and benefits of the procedure discussed with the patient and her . Risks include but are not limited to bleeding, infection, reaction to the anesthetic. Additionally if the patient's margins were to be positive to understands the further tissue acquisition may be necessary. I have discussed in detail the concerns in this reduction mammoplasty incision which include: 1. Prior smoking history 2. Prior radiation via the Aleksandra to a portion of the left breast 3. Cardiac history on aspirin and Effient 4. diabetes Therefore the patient has decided to undergo: left breast needle localization by ultrasound and lumpectomy left sentinel node injection/ possible injection of methylene blue left sentinel node biopsy, possible left axilary node resection possible oncoplastic tissue transfer cardiac clearance clearance from Dr. Damian CC: Dr. Damian
== END ==
LOC: WWCWWP 14:12
PROVIDERS: ATTEND Surgery
DX: D05.12 Intraductal carcinoma in situ of left breast (principal); E11.9 Type 2 diabetes mellitus without complications; E78.5 Hyperlipidemia, unspecified; G25.81 Restless legs syndrome; M70.71 Other bursitis of hip, right hip; I25.2 Old myocardial infarction; J10.1 Influenza due to other identified influenza virus with other respiratory manifestations; J44.9 Chronic obstructive pulmonary disease, unspecified; M19.90 Unspecified osteoarthritis, unspecified site; F17.210 Nicotine dependence, cigarettes, uncomplicated; Z17.0 Estrogen receptor positive status [ER+]; Z79.02 Long term (current) use of antithrombotics/antiplatelets; Z80.3 Family history of malignant neoplasm of breast; Z86.16 Personal history of COVID-19; Z88.0 Allergy status to penicillin; Z88.8 Allergy status to other drugs, medicaments and biological substances; Z92.3 Personal history of irradiation; Z98.51 Tubal ligation status; Z98.890 Other specified postprocedural states; Z79.82 Long term (current) use of aspirin; Z79.84 Long term (current) use of oral hypoglycemic drugs; Z79.899 Other long term (current) drug therapy; Z86.19 Personal history of other infectious and parasitic diseases; Z86.74 Personal history of sudden cardiac arrest; Z87.19 Personal history of other diseases of the digestive system; Z95.5 Presence of coronary angioplasty implant and graft

== ENCOUNTER 2023-08-11 06:53 | Day surgery (SDC) | payer MEDICARE ==
[2023-08-07 15:37] VITALS: BMI 33.6
[~2023-08-11 06:53] MED LIST changes: -ALPRAZolam 0.25 MG TAB PO PRN; -ALPRAZolam 0.5 MG TAB PO PRN; -ASPIRIN 325 MG TAB PO STA; +LIDOCAINE 1% (10MG/ML) FOR IV START INTRADERMA PRN; -NITROGLYCERIN SL TABS 0.4 MG TAB SUBLINGUAL PRN; +ONDANSETRON 4 MG/2 ML VIAL IVP ONE; +droPERidol 5 MG/2 ML VIAL IVP ONE
[2023-08-11 07:58] LABS: Glucose,Whole Blood 108 mg/dL (70-110)
[2023-08-11] MEDS: LACTATED RINGERS 1,000 ML IV SCH (08:00)
[2023-08-11] MEDS ORDERED: ALPRAZolam 0.25 MG TAB ONE (08:03)
[2023-08-11] MEDS: ALPRAZolam 0.25 MG TAB PO ONE (08:05)
[2023-08-11] MEDS: LIDOCAINE 1% INJ 10MG/ML (20 ML MDV) SQ ONE (08:44)
[2023-08-11] MEDS: HEPARIN SODIUM,PORCINE 5,000 UNIT/ML 1 ML VIAL SQ PRN (09:35)
[2023-08-11] MEDS: ONDANSETRON 4 MG/2 ML VIAL IVP ONE (09:35)
--- NOTE | 2023-08-11 09:43 | P.NAPBC ---
NAPBC Queries - NAPBC Queries Was patient's case review presented at [facility] tumor board? If no, comment.: Yes Was patient's pathology reviewed at [facility]? If no, comment.: Yes Was breast conservation surgery offered? If no, comment.: Yes Was sentinel node biopsy offered? If no, comment.: Yes Was diagnosis confirmed by percutaneous core biopsy? If no, comment.: Yes Is patient mastectomy patient?: No Was a preop referral to reconstructive surgeon offered?: No Clinical Stage: Mario 0 left breast at 10:00
[2023-08-11] MEDS ORDERED: ePHEDrine 50 MG/ML 1 ML VIAL ONE (10:12)
[2023-08-11] MEDS ORDERED: LIDOCAINE 1% INJ 10MG/ML (20 ML MDV) ONE (10:12)
[2023-08-11] MEDS ORDERED: MIDAZOLAM 2 MG/2 ML VIAL ONE (10:12)
[2023-08-11] MEDS ORDERED: fentaNYL (PF) 50 MCG/ML 2 ML AMP ONE (10:12)
[2023-08-11] MEDS ORDERED: SUCCINYLCHOLINE CHLORIDE 200 MG/10 ML VIAL IV ONE (10:12)
[2023-08-11] MEDS ORDERED: ROCURONIUM 10 MG/ML (5 ML VIAL) IV ONE (10:12)
[2023-08-11] MEDS ORDERED: ACETAMINOPHEN IV (For NPO) 1,000 MG/100 ML VIAL ONE (10:12)
[2023-08-11] MEDS ORDERED: PROPOFOL 10 MG/ML 20 ML VIAL IV ONE (10:12)
[2023-08-11] MEDS: IV FLUID CONTINUATION 1,000 ML IV ONE (11:21)
--- NOTE | 2023-08-11 11:53 | P.OP ---
Date of Procedure: 08/11/23 Preoperative Diagnosis: DCIS left breast 11 o'clock position Postoperative Diagnosis: Same Procedure(s) Performed: Left breast sentinel node biopsy, left needle localization lumpectomy Anesthesia: ROLDAN Surgeon: Maisha Harmon Estimated Blood Loss (ml): 5 IV fluids (ml): 900 Pathology: other ([place] lymph node, breast tissue lumpectomy specimen) Condition: stable Disposition: same day Indications for Procedure: Biopsy-proven left breast ductal carcinoma in situ Operative Findings: Fibrofatty breast tissue Description of Procedure: The patient was first seen in the radiology department for needle localization of the 11 o'clock position of the left breast was performed. Additionally radiotracer was injected in the periareolar region. The patient was brought to the operative suite. Following induction of anesthesia the neoprobe was used to interrogate the axilla. Radioactivity was identified in the axilla. The left breast and axilla were prepped and draped in a sterile fashion. The area of the axilla was approached initially. Using the neoprobe an incision was made in the axilla. This was over the area of greatest radioactivity. This tissue was grasped using an Allis clamp. Using the Bovie dissection was performed and this tissue was resected. The radioactive count on the sentinel node was 2875. The background count at 10 seconds was 19. After reassured that hemostasis was attained the wound was irrigated. The deep tissues were closed using 3-0 Vicryl suture. The skin was closed using 4-0 Monocryl. Following this the area of the breast was approached. A circumareolar incision was made. Dissection was performed down to the shaft of the needle. The needle was grasped using an Allis clamp. Surrounding tissue was excised. This was done down to the tip of the needle. Additional superior and inferior tissue was obtained. Posterior dissection was onto the pectoralis muscle. Anterior dissection was under the skin. After we were sure that hemostasis was attained the specimen was painted for orientation. Radiograph of the specimen revealed the area of concern had been removed. Titanium clips were placed in the biopsy cavity. The wound was well-irrigated. Surgicel in powder form was placed. The deep tissues were closed using 3-0 Vicryl suture. The skin was closed using 4-0 Monocryl. The patient tolerated the procedure in stable condition. All instrument and sponge counts were correct at the end of the case. The patient tolerated the procedure in stable condition.
[2023-08-11 12:13] VITALS: TEMP 97.5
[2023-08-11] MEDS: HYDROmorphone 0.5 MG/0.5 ML SYRINGE IVP PRN (12:42)
[2023-08-11 12:55] LABS: Glucose,Whole Blood 93 mg/dL (70-110)
--- NOTE | 2023-08-11 12:57 | NM ---
EXAMINATION TYPE: NM sentinel node injection DATE OF EXAM: 08/11/2023 COMPARISON: NONE CLINICAL INDICATION: Female, 68 years old with history of INTRADUCTAL CARCINOMA PERSONAL HISTORY OF Ricky FLOWERS; TECHNIQUE AND FINDINGS: The procedure of sentinel lymph node injection was explained to the patient. The benefits, alternatives, and risks were discussed. An informed consent was then obtained. Overlying skin is cleaned with sterile alcohol. Following this, 499 uCi Tc99m Tilmanocept was inject ed in the upper outer aspect of the left nipple intradermally. The patient tolerated the procedure well without any immediate complication. The patient was kept in the radiology department for short stay after the procedure and then taken to surgery for surgical p rocedure what is presumed intraoperative gamma probe will be used for sentinel lymph node detection. IMPRESSION: Left breast radiotracer injection for sentinel node localization as above.
[2023-08-11 13:45] VITALS: BP 130/77; PULSE 81; RESP 20
--- NOTE | 2023-08-19 12:02 | MM ---
Reason for Exam: Post Procedure Mammogram. Last screening mammogram was performed 1 month(s) ago. Patient History: Menarche at age 15. First Full-Term at age 18. Postmenopausal. Breast cancer, age 60. Breast cancer, left, age 67. Previous chest radiation therapy at age 60. 05/13/2023, Malignant US biopsy breast VAD LT on the left side. 2015, Lumpectomy on the Left side. 01/08/2016, Malignant Core Biopsy on the left side. 12/25/2015, Malignant Core Biopsy on the left side. 2016, Radiation Therapy on the left side. Sister had breast cancer, age 73. Prior Study Comparison: 06/27/2022 Bilateral MG diagnostic mammo w CAD [facility], [facility]. 05/13/2023 Left MG diagnostic mammo LT wo CAD., [facility]. 06/30/2023 Bilateral MG 3D diag mammo w/cad [facility], [facility]. Tissue Density: Left: There are scattered fibroglandular densities. Pathology Description: Location: 10 o'clock. Needle Type: 5 cm Kopan The procedure of needle localization with wire placement and than surgical excision was explained to the patient. Benefits, alternatives, and risks were discussed. An informed consent was then obtained. The microclip at the 10:00 periareolar left breast at the site of positive biopsy is identified. A tiny residual nodule is present at the microclip. The shortest pathway was a lateral approach and was utilized. The overlying skin was prepped and draped in usual sterile fashion. Lidocaine was used as anesthetic into the skin and subcutaneous tissue up to the level of area of concern. A 5 cm Kopans needle was used. It was placed via a lateral approach under under direct ultrasound guidance. At this point, the wire was placed and the needle was withdrawn. The wire was fixed to patient's skin. Images were marked for surgeon. Postprocedure mammogram shows clip along the segment of the wire. The patient tolerated the procedure well without any immediate complication. The patient was kept in the radiology department for short stay after the procedure and then taken to surgery for surgical excision. Targeted clip and wire are identified in specimen mammogram. The patient was kept in hospital for short stay after the procedure and then discharged home in stable condition. IMPRESSION: Successful, uncomplicated needle localization with wire placement and surgical excision of site of biopsy-proven DCIS anterior 10:00 left breast, full pathology results to follow. Pathology Results: Result: Malignant, Ductal carcinoma in situ, solid type. A. LEFT BREAST, LUMPECTOMY: Intermediate grade ductal carcinoma in situ (DCIS), margins negative. See Surgical Pathology Cancer Case Summary. B. LEFT BREAST, NEW INFERIOR MARGIN, EXCISION: Benign breast with fibrocystic changes. C. SENTINEL NODE, BIOPSY: Lymph node negative for metastasis. CK7 performed on block C1, MOLINA performed on block C2, CK AE1/3 performed on block C3, and CAM 5.2 performed on block C4 are confirmatory (controls appropriate). Overall Assessment: Malignant Assessment: MG diagnostic mammo LT wo CAD. - Left: Known biopsy proven malignancy, BI-RAD 6. Management: Surgical Consultation of the left breast. Electronically signed and approved by: Alfie Burton M.D. Radiologist
== END 2023-08-11 14:15 | disposition home or self-care (01) ==
LOC: OR 06:53
PROVIDERS: ATTEND Surgery
DX: D05.12 Intraductal carcinoma in situ of left breast (principal); N60.12 Diffuse cystic mastopathy of left breast; I48.91 Unspecified atrial fibrillation; I25.2 Old myocardial infarction; I10 Essential (primary) hypertension; E78.5 Hyperlipidemia, unspecified; E11.9 Type 2 diabetes mellitus without complications; J44.9 Chronic obstructive pulmonary disease, unspecified; K76.9 Liver disease, unspecified; M19.90 Unspecified osteoarthritis, unspecified site; F41.9 Anxiety disorder, unspecified; Z87.891 Personal history of nicotine dependence; Z79.84 Long term (current) use of oral hypoglycemic drugs; Z79.82 Long term (current) use of aspirin; Z79.51 Long term (current) use of inhaled steroids; Z79.899 Other long term (current) drug therapy; Z98.890 Other specified postprocedural states; Z95.5 Presence of coronary angioplasty implant and graft; Z85.3 Personal history of malignant neoplasm of breast; Z88.0 Allergy status to penicillin; Z88.1 Allergy status to other antibiotic agents; Z88.8 Allergy status to other drugs, medicaments and biological substances; Z80.3 Family history of malignant neoplasm of breast
CPT/HCPCS: 19301; 38525; 38900; 88342; 88307; 88341; 77065; 76098; 19285; 38792; C1819; A9520; J2250; J0330; J1644; J0690; J2405; J2001; J3010; J0131; J2704; J1170

== ENCOUNTER → 2023-08-20 | Outpatient (CLI) | payer MEDICARE ==
--- NOTE | 2023-08-20 12:37 | P.PN ---
Progress Note - Text Progress Note Date: 08/20/23 Shu is a 68 year old female status post left breast lumpectomy and SNB on 08-11-23. Her margins were (-), and one node (-). Size of DCIS 15mm. She tolerated the procedure without difficulty. Examination: Lungs: Clear Heart: Regular rate and rhythm Incision: Clean and dry axilla and breast Impression: Patient doing well postoperatively Plan: Follow-up medical oncology and radiation oncology Follow-up here in 4 months CC: Dr. Damian
[2023-08-20 12:45] VITALS: BP 156/87; PULSE 69; RESP 15; TEMP 98.2
== END ==
LOC: WWCWWP 12:09
PROVIDERS: ATTEND Surgery
DX: Z04.89 Encounter for examination and observation for other specified reasons (principal); N63.20 Unspecified lump in the left breast, unspecified quadrant; F17.200 Nicotine dependence, unspecified, uncomplicated; Z98.890 Other specified postprocedural states; Z88.0 Allergy status to penicillin; Z88.8 Allergy status to other drugs, medicaments and biological substances; Z79.82 Long term (current) use of aspirin

== ENCOUNTER → 2023-12-21 | Outpatient (CLI) | payer MEDICARE ==
[2023-12-21 12:28] VITALS: BP 127/81; PULSE 72; RESP 16; TEMP 98
--- NOTE | 2023-12-21 12:50 | P.PN ---
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 Her pathology revealed a 4.5 mm invasive ductal cancer, SNB (-). All margins were (-). DCIS present all margins (-). She was treated with [facility]CA radiation. She did have arimidex from 2015 to 2019. She was seen in the emergency room on [id number]. She was complaining of swelling and erythema of the left breast. Resolved spontaneously without antibiotics or drainage. At that time an ultrasound was done of the left breast. It revealed postsurgical changes. A hypoechoic irregular mass at 10:00 was seen measuring 3 x 7 mm. This was considered suspicious and ultrasound- guided core biopsy was recommended. Did not complain of any new lumps masses or nodules of concern in either breast. Last bilateral mammogram was on and this was BIRADS 6, she was noted to have prior lumpectomy site with surgical clips. A second core marker was in the lower inner aspect of the left breast. Most recent biopsy was 10:00 left breast. This was ER/CT positive DCIS. She does not feel anything at this time. She did not have any fever or chills. She did have pain near the area of erythema in the left breast. Bilateral mammogram 06-30-23 known recent biopsy proven left breast cancer, no other lesions of concern either breast She had a computed tomography scan of the chest done on 1923 which was negative for any evidence of lung cancer. The patient was scheduled for a lumpectomy and SNB however this was cancelled as the patient tested (+) for Influenza A She underwent an ultrasound core biopsy of the 10 o'clock position on 05-13-23 and this was (+) for DCIS. Focus about 7 mm. tolerated the procedure without difficulty. The mammogram and ultrasound reviewed with Dr. Burton. She underwent a left breast lumpectomy and SNB on 08-11-23 margins (-), one node (-), all margins (-). Size of DCIS 15 mm. Genetic testing initially (-) than called VUS She did not follow up with the radiation or medical oncologist. She is not complaining of any new lumps masses or nodules of concern in either breast. patient had a cardiac stint placed October 2022 liver elevated enzymes related to statin drugs Caffeine: green tea daily nicotine: 1 pack/2 weeks chocolate: occasional BCP: 3 years as a teen hormones: none no antihormone therapy Family history: patient: left breast cancer Hormonal History: menarche: 15 A2, breast fed: yes, age at first live : 18 menopause: 49 Surgical history: 2 C-sections hernia repair left breast lumpectomy and SNB in 2016 left breast lumpectomy 08-11-23 Medical History: liver COVID 2020 cardiac cath and stint Social History: nicotine: as above alcohol: none drugs: none - Constitutional Constitutional: Denies chills, Denies fever - EENT Comment: bilateral cataracts Eyes: denies blurred vision, denies pain Ears: bilateral: tinnitus, deny: decreased hearing Ears, nose, mouth and throat: Reports headache, Denies sore throat - Breasts Breasts: bilateral: as per HPI - Cardiovascular Cardiovascular: Reports shortness of breath - Respiratory Respiratory: Denies cough - Gastrointestinal Gastrointestinal: Denies abdominal pain, Denies diarrhea, Denies nausea, Denies vomiting - Genitourinary (Female) Genitourinary: Denies dysuria, Denies hematuria - Menstruation Menstruation: Reports postmenopausal - Musculoskeletal Comment: osteoarthritis Musculoskeletal: Reports myalgias - Integumentary Integumentary: Denies pruritus, Denies rash - Neurological Neurological: Denies numbness, Denies weakness - Psychiatric Psychiatric: Reports anxiety, Denies depression - Endocrine Endocrine: Reports weight change, Denies fatigue - Hematologic/Lymphatic Comment: none - Allergic/Immunologic Allergic/Immunologic: Reports seasonal allergies Past Medical History Past Medical History: Cancer, COPD, Diabetes Mellitus, Hyperlipidemia, Liver Disease, Myocardial Infarction (CT), Osteoarthritis (OA) Additional Past Medical History / Comment(s): RESTLESS LEG. BURSITIS RIGHT HIP. HAS POSITIVE HEPATITIS C ANTIBODIES. "funny feeling in rt side of chest fluttery sensation", breast ca left side,per pcp on her ekg showed minor heartattack, Last Myocardial Infarction Date:: unk History of Any Multi-Drug Resistant Organisms: None Reported Past Surgical History: Breast Surgery, Hernia Repair, Tubal Ligation Additional Past Surgical History / Comment(s): STEREOTACTIC BREAST BX LEFT. lumpectomy to lft breast, lymph nodes removed Additional Past Anesthesia/Blood Transfusion Reaction / Comment(s): COLONOSCOPY. DUE TO COPD SHE WOKE FROM ANESTHESIA COUGHING, CHOKING, SOB SHE WANTS TO ENSURE THAT HER HEAD OF BED WILL BE UP. Past Psychological History: Anxiety Smoking Status: Former smoker Past Alcohol Use History: None Reported Additional Past Alcohol Use History / Comment(s): SMOKED 25 YRS, 1 PPD. Past Drug Use History: None Reported - Past Family History Sister(s) Family Medical History: Cancer Additional Family Medical History / Comment(s): BREAST Medications and Allergies Home Medications Medication Instructions Recorded Confirmed Type metFORMIN HCL [Glucophage XR] 750 mg PO W/SUPPER 10/09/21 11/10/22 History Evolocumab [Repatha Sureclick] 0 mg SQ Q14D 11/07/22 11/10/22 History Fenofibrate Nanocrystallized 48 mg PO DAILY 11/07/22 11/10/22 History [Fenofibrate] Glusamine(Unk) 1 tab PO DAILY 11/07/22 11/10/22 History Metoprolol Succinate (ER) [Toprol 25 mg PO DAILY 11/07/22 11/10/22 History XL] Multivitamins, Thera [Multivitamin 1 tab PO DAILY 11/07/22 11/10/22 History (formulary)] [place]-3 Fatty Acids [[place]-3] 1,000 mg PO DAILY 11/07/22 11/10/22 History Aspirin EC [Ecotrin Low Dose] 81 mg PO DAILY #30 tab 11/11/22 Rx Prasugrel [Effient] 10 mg PO DAILY #90 tab 11/11/22 Rx Allergies Allergy/AdvReac Type Severity Reaction Status Date / Time amoxicillin [From Augmentin] AdvReac Unknown Verified 04/30/23 14:12 clavulanic acid AdvReac Unknown Verified 04/30/23 14:12 [From Augmentin] prednisone AdvReac SHAKING. Verified 04/30/23 14:12 Objective - Vital Signs Vital signs: Vital Signs Temp 98 F 12/21/23 12:25 Pulse 72 12/21/23 12:25 Resp 16 12/21/23 12:25 BP 127/81 12/21/23 12:25 Pulse Ox 98 12/21/23 12:25 FiO2 Intake & Output 12/20/23 12/21/23 12/21/23 18:59 06:59 18:59 Weight 87.997 kg - Constitutional General appearance: Present: cooperative - EENT Eyes: Present: EOMI ENT: Present: hearing grossly normal - Neck Neck: Present: normal ROM - Respiratory Respiratory: bilateral: CTA - Cardiovascular Heart sounds: normal: S1, S2 - Integumentary Integumentary: Present: normal turgor - Musculoskeletal Musculoskeletal: Present: gait normal - Psychiatric Psychiatric: Present: A&O x's 3, appropriate affect, intact judgment & insight - Additional findings Additional findings: Breast Exam: BRA: 3XL inspection: Asymmetry of the breast related to lumpectomy left breast, bilateral grade 3 ptosis Palpation: Right breast: Multiple positional exam fibrocystic changes no dominant masses or nodules of concern Right axilla: No adenopathy of concern left breast: Multi-positional exam post surgical changes and postradiation changes no discrete dominant masses or nodules of concern, tattoo left breast Left axilla: No adenopathy of concern Assessment and Plan Assessment: Impression: Breast 10:00 ductal carcinoma in situ Radiographic abnormality left breast/status post ultrasound-guided core biopsy positive for DCIS done on [id number]; this was at the 10 o'clock position Status post left breast lumpectomy and radiation therapy for stage I invasive ductal carcinoma in 2015 this was at the 4 o'clock position Plan: appointment radiation oncology appointment medical oncology Bilateral mammogram Jun 2024 follow up here in 4 months CC: DR. Damian
== END ==
LOC: WWCWWP 12-10 08:39
PROVIDERS: ATTEND Surgery
DX: D05.12 Intraductal carcinoma in situ of left breast (principal); L53.8 Other specified erythematous conditions; Z80.3 Family history of malignant neoplasm of breast; Z48.817 Encounter for surgical aftercare following surgery on the skin and subcutaneous tissue; Z87.891 Personal history of nicotine dependence; Z92.3 Personal history of irradiation; Z88.0 Allergy status to penicillin; Z88.8 Allergy status to other drugs, medicaments and biological substances

== ENCOUNTER → 2024-03-04 | Outpatient (CLI) | payer MEDICARE ==
--- NOTE | 2024-03-10 10:45 | BD ---
EXAMINATION TYPE: Axial Bone Density DATE OF EXAM: 03/04/2024 CLINICAL HISTORY: 68 years old Female. ICD-10 CODE: M85.9 DISORDER OF BONE Height: 61.7 in Weight: 190 lbs FRAX RISK QUESTIONS: Secondary Osteoporosis: 1. Type 1 Diabetes: yes 5. Chronic liver disease: fatty liver disease Rheumatoid Arthritis: yes Current Tobacco Use: yes EXAM MEASUREMENTS: Bone mineral densitometry was performed using the [employer] System. Bone mineral density as measured about the Lumbar spine is: ----- L1-L4(G/cm2): 1.321 T Score Values are as follows: ----- L1: -0.8 ----- L2: -0.4 ----- L3: 1.7 ----- L4: 3.4 ----- L1-L4: 1.2 Z Score Values are as follows: ----- L1: 0.0 ----- L2: 0.4 ----- L3: 2.5 ----- L4: 4.1 ----- L1-L4: 2.0 Bone mineral density has: Increased 6.3% since study of: 07/25/2021 Bone mineral density about the R hip (g/cm2): 1.164 Bone mineral density about the L hip (g/cm2): 1.039 T Score values are as follows: -----R Neck: 0.3 -----L Neck: 0.1 -----R Total: 1.2 -----L Total: 0.2 Z Score values are as follows: -----R Neck: 1.3 -----L Neck: 1.2 -----R Total: 2.0 -----L Total: 1.0 Bone mineral density has: Decreased -6.3% since study of: 07/25/2021 FRAX%s: The graph provided illustrates a 7.7% chance for a major osteoporotic fx and a 0.5% chance fo r the hips probability for fx in 10 years time. IMPRESSION: Normal (Values between +1 and -1 indicate normal bone mass). Consider repeating this study in 5 year s or sooner if there is some new clinical indication. NOTE: T-SCORE=SD OF THE YOUNG ADULT MEAN. [facility], , 03/10/2024 10:43 AM
== END | disposition home or self-care (01) ==
LOC: RADBDWWP 12:46
PROVIDERS: ATTEND Family Medicine
DX: M85.9 Disorder of bone density and structure, unspecified
CPT/HCPCS: 77080

== ENCOUNTER → 2024-06-23 | Outpatient (CLI) | payer MEDICARE ==
--- NOTE | 2024-06-23 10:40 | CTL ---
EXAMINATION TYPE: CT Low Dose Lung DATE OF EXAM ORDERED: 06/23/2024 COMPARISON: 06/30/2023 CLINICAL INDICATION: Female, 68 years old with history of Z12.2 LUNG CA SCR F17.210 CURRENT SMOKER; P HH, CURRENT SMOKER 1 PPD X51 YEARS, Lung cancer screening, History of Smoking/tobacco use. TECHNIQUE: Low dose computed tomography scan was performed through the chest at 1 mm thick sections a nd reconstructed images in multiple planes at 1 mm and [address] DLP: 142.[address] CTDI: 3.90 mGy Automated exposure control for dose reduction was used. CT DIAGNOSTIC QUALITY: Satisfactory FINDINGS: There is no suspicious lung mass or nodule. There is a stable 1 to 2 mm nodule in the right upper lob e. The lungs are clear and there is no abnormal airspace consolidation or interstitial density. There is no mediastinal, hilar or axillary adenopathy. There is no pleural effusion, pleural thickening or pneumothorax. No focal osseous lesions are seen. Limited scans the upper abdomen reveals no gross abnormality IMPRESSION: 1. Lung rads Category 2 benign. Continue routine screening at yearly intervals. 2. No acute cardiopulmonary disease. [facility], , 06/23/2024 10:37 AM
== END | disposition home or self-care (01) ==
LOC: RADCTMAIN 09:50
PROVIDERS: ATTEND Family Medicine
DX: Z12.2 Encounter for screening for malignant neoplasm of respiratory organs (principal); F17.210 Nicotine dependence, cigarettes, uncomplicated
CPT/HCPCS: 71271

== ENCOUNTER → 2024-06-30 | Outpatient (CLI) | payer MEDICARE ==
[2024-06-30 12:08] VITALS: BP 139/72; PULSE 63; RESP 16; TEMP 98.3
--- NOTE | 2024-06-30 12:30 | P.PN ---
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 Her pathology revealed a 4.5 mm invasive ductal cancer, SNB (-). All margins were (-). DCIS present all margins (-). She was treated with [facility]CA radiation. She did have arimidex from 2015 to 2019. She was seen in the emergency room on [id number]. She was complaining of swelling and erythema of the left breast. Resolved spontaneously without antibiotics or drainage. At that time an ultrasound was done of the left breast. It revealed postsurgical changes. A hypoechoic irregular mass at 10:00 was seen measuring 3 x 7 mm. This was considered suspicious and ultrasound- guided core biopsy was recommended. Did not complain of any new lumps masses or nodules of concern in either breast. Last bilateral mammogram was on and this was BIRADS 6, she was noted to have prior lumpectomy site with surgical clips. A second core marker was in the lower inner aspect of the left breast. Most recent biopsy was 10:00 left breast. This was ER/CO positive DCIS. She does not feel anything at this time. She did not have any fever or chills. She did have pain near the area of erythema in the left breast. Bilateral mammogram 06-30-23 known recent biopsy proven left breast cancer, no other lesions of concern either breast She had a computed tomography scan of the chest done on 1923 which was negative for any evidence of lung cancer. The patient was scheduled for a lumpectomy and SNB however this was cancelled as the patient tested (+) for Influenza A She underwent an ultrasound core biopsy of the 10 o'clock position on 05-13-23 and this was (+) for DCIS. Focus about 7 mm. tolerated the procedure without difficulty. The mammogram and ultrasound reviewed with Dr. Burton. She underwent a left breast lumpectomy and SNB on 08-11-23 margins (-), one node (-), all margins (-). Size of DCIS 15 mm. Genetic testing initially (-) than called VUS She did not follow up with the radiation or medical oncologist. She is not complaining of any new lumps masses or nodules of concern in either breast. patient had a cardiac stint placed October 2022 liver elevated enzymes related to statin drugs She is due for a mammogram this month. She is not concerned about any new lumps masses or nodules in her breast. She is not following with anyone at this time from medical or radiation oncology. Caffeine: green tea daily nicotine: 1 pack/2 weeks chocolate: occasional BCP: 3 years as a teen hormones: none no antihormone therapy Family history: patient: left breast cancer Hormonal History: menarche: 15 A2, breast fed: yes, age at first live : 18 menopause: 49 Surgical history: 2 C-sections hernia repair left breast lumpectomy and SNB in 2016 left breast lumpectomy 08-11-23 had all her teeth pulled and is getting new dentures Medical History: liver COVID 2020 cardiac cath and stint Social History: nicotine: as above alcohol: none drugs: none - Constitutional Constitutional: Denies chills, Denies fever - EENT Comment: bilateral cataracts Eyes: denies blurred vision, denies pain Ears: bilateral: tinnitus, deny: decreased hearing Ears, nose, mouth and throat: Reports headache, Denies sore throat - Breasts Breasts: bilateral: as per HPI - Cardiovascular Cardiovascular: Reports shortness of breath - Respiratory Respiratory: Denies cough - Gastrointestinal Gastrointestinal: Denies abdominal pain, Denies diarrhea, Denies nausea, Denies vomiting - Genitourinary (Female) Genitourinary: Denies dysuria, Denies hematuria - Menstruation Menstruation: Reports postmenopausal - Musculoskeletal Comment: osteoarthritis Musculoskeletal: Reports myalgias - Integumentary Integumentary: Denies pruritus, Denies rash - Neurological Neurological: Denies numbness, Denies weakness - Psychiatric Psychiatric: Reports anxiety, Denies depression - Endocrine Endocrine: Reports weight change, Denies fatigue - Hematologic/Lymphatic Comment: none - Allergic/Immunologic Allergic/Immunologic: Reports seasonal allergies Past Medical History Past Medical History: Cancer, COPD, Diabetes Mellitus, Hyperlipidemia, Liver Disease, Myocardial Infarction (CO), Osteoarthritis (OA) Additional Past Medical History / Comment(s): RESTLESS LEG. BURSITIS RIGHT HIP. HAS POSITIVE HEPATITIS C ANTIBODIES. "funny feeling in rt side of chest fluttery sensation", breast ca left side,per pcp on her ekg showed minor heartattack, Last Myocardial Infarction Date:: unk History of Any Multi-Drug Resistant Organisms: None Reported Past Surgical History: Breast Surgery, Hernia Repair, Tubal Ligation Additional Past Surgical History / Comment(s): STEREOTACTIC BREAST BX LEFT. lumpectomy to lft breast, lymph nodes removed Additional Past Anesthesia/Blood Transfusion Reaction / Comment(s): COLONOSCOPY. DUE TO COPD SHE WOKE FROM ANESTHESIA COUGHING, CHOKING, SOB SHE WANTS TO ENSURE THAT HER HEAD OF BED WILL BE UP. Past Psychological History: Anxiety Smoking Status: Former smoker Past Alcohol Use History: None Reported Additional Past Alcohol Use History / Comment(s): SMOKED 25 YRS, 1 PPD. Past Drug Use History: None Reported - Past Family History Sister(s) Family Medical History: Cancer Additional Family Medical History / Comment(s): BREAST Medications and Allergies Home Medications Medication Instructions Recorded Confirmed Type metFORMIN HCL [Glucophage XR] 750 mg PO W/SUPPER 10/09/21 11/10/22 History Evolocumab [Repatha Sureclick] 0 mg SQ Q14D 11/07/22 11/10/22 History Fenofibrate Nanocrystallized 48 mg PO DAILY 11/07/22 11/10/22 History [Fenofibrate] Glusamine(Unk) 1 tab PO DAILY 11/07/22 11/10/22 History Metoprolol Succinate (ER) [Toprol 25 mg PO DAILY 11/07/22 11/10/22 History XL] Multivitamins, Thera [Multivitamin 1 tab PO DAILY 11/07/22 11/10/22 History (formulary)] [place]-3 Fatty Acids [[place]-3] 1,000 mg PO DAILY 11/07/22 11/10/22 History Aspirin EC [Ecotrin Low Dose] 81 mg PO DAILY #30 tab 11/11/22 Rx Prasugrel [Effient] 10 mg PO DAILY #90 tab 11/11/22 Rx Allergies Allergy/AdvReac Type Severity Reaction Status Date / Time amoxicillin [From Augmentin] AdvReac Unknown Verified 04/30/23 14:12 clavulanic acid AdvReac Unknown Verified 04/30/23 14:12 [From Augmentin] prednisone AdvReac SHAKING. Verified 04/30/23 14:12 Objective - Vital Signs Vital signs: Vital Signs Temp 98.3 F 06/30/24 12:06 Pulse 63 06/30/24 12:06 Resp 16 06/30/24 12:06 BP 139/72 06/30/24 12:06 Pulse Ox 99 06/30/24 12:06 FiO2 Intake & Output 06/29/24 06/30/24 06/30/24 18:59 06:59 18:59 Weight 86.636 kg - Constitutional General appearance: Present: cooperative - EENT Eyes: Present: EOMI ENT: Present: hearing grossly normal - Neck Neck: Present: normal ROM - Respiratory Respiratory: bilateral: CTA - Cardiovascular Rhythm: regular Heart sounds: normal: S1, S2 - Integumentary Integumentary: Present: normal turgor - Musculoskeletal Musculoskeletal: Present: gait normal - Psychiatric Psychiatric: Present: A&O x's 3, appropriate affect, intact judgment & insight - Additional findings Additional findings: Breast Exam: BRA: 3XL inspection: Asymmetry of the breast related to lumpectomy left breast, bilateral grade 3 ptosis Palpation: Right breast: Multiple positional exam fibrocystic changes no dominant masses or nodules of concern Right axilla: No adenopathy of concern left breast: Multi-positional exam post surgical changes and postradiation changes no discrete dominant masses or nodules of concern, tattoo left breast Left axilla: No adenopathy of concern Assessment and Plan Assessment: Impression: Breast 10:00 ductal carcinoma in situ Radiographic abnormality left breast/status post ultrasound-guided core biopsy positive for DCIS done on [id number]; this was at the 10 o'clock position Status post left breast lumpectomy and radiation therapy for stage I invasive ductal carcinoma in 2015 this was at the 4 o'clock position Plan: appointment radiation oncology appointment medical oncology Bilateral mammogram Jun 2024, not yet done to follow up after this is done CC: DR. Damian
== END ==
LOC: WWCWWP 11:19
PROVIDERS: ATTEND Surgery
DX: C50.912 Malignant neoplasm of unspecified site of left female breast (principal); F17.200 Nicotine dependence, unspecified, uncomplicated; Z98.890 Other specified postprocedural states; Z90.12 Acquired absence of left breast and nipple; Z17.21 Progesterone receptor positive status; Z17.0 Estrogen receptor positive status [ER+]; Z80.3 Family history of malignant neoplasm of breast; Z88.0 Allergy status to penicillin; Z88.1 Allergy status to other antibiotic agents; Z88.8 Allergy status to other drugs, medicaments and biological substances

== ENCOUNTER → 2024-07-22 | Outpatient (CLI) | payer MEDICARE ==
--- NOTE | 2024-07-22 15:03 | MM ---
Reason for Exam: Hx of breast cancer, conservation therapy. Last screening mammogram was performed 12 month(s) ago. Patient History: Menarche at age 15. First Full-Term at age 18. Postmenopausal. Breast cancer, left, age 60. Breast cancer, left, age 67. Breast cancer, left, age 68. Previous chest radiation therapy at age 60. 08/11/2023, Lumpectomy on the Left side. 08/11/2023, Malignant US breast localization LT on the left side. 05/13/2023, Malignant US biopsy breast VAD LT on the left side. 2015, Lumpectomy on the Left side. 01/08/2016, Malignant Core Biopsy on the left side. 12/25/2015, Malignant Core Biopsy on the left side. 2015, Radiation Therapy on the left side. Sister had breast cancer, age 73. Prior Study Comparison: 12/07/2015 Bilateral Screening Mammogram, [facility]. 12/12/2015 Left Diagnostic Mammogram, [facility]. 12/12/2015 Left Diagnostic Ultrasound, [facility]. 01/18/2016 Bilateral Diagnostic Breast MRI, [facility]. 09/04/2016 Bilateral Diagnostic Mammogram, [facility]. 09/07/2017 Bilateral Diagnostic Mammogram, [facility]. 08/02/2018 Bilateral Diagnostic Mammogram, [facility]. 08/16/2019 Bilateral Diagnostic Mammogram, [facility]. 06/18/2020 Bilateral Diagnostic Mammogram, [facility]. 06/18/2021 Bilateral Diagnostic Mammogram, [facility]. 06/27/2022 Bilateral MG diagnostic mammo w CAD [facility], [facility] 04/20/2023 Left US breast LT, [facility]. 05/13/2023 Left MG diagnostic mammo LT wo CAD., [facility]. 06/30/2023 Bilateral MG 3D diag mammo w/cad [facility], [facility]. 08/11/2023 Left MG diagnostic mammo LT wo CAD., [facility]. Tissue Density: There are scattered areas of fibroglandular density. Findings: Analyzed By CAD. Left breast surgical clips. No new suspicious masses, calcifications or distortions. Overall Assessment: Benign, BI-RAD 2 Management: Diagnostic Mammogram of both breasts in 1 year. Results were given to the patient verbally at the time of exam. Patient should continue monthly self-breast exams. A clinical breast exam by your physician is recommended on an annual basis. This exam should not preclude additional follow-up of suspicious palpable abnormalities. Note on Tennille scores and lifetime risk: 1. A Tennille score greater than 3% is considered moderate risk. If this is the case, consider specialist referral to assess eligibility for a risk reducing agent. 2. If overall lifetime risk for the development of breast cancer is 20% or higher, the patient may qualify for future screening with alternating mammogram and breast MRI. [facility], , 07/22/2024 3:00 PM. Electronically signed and approved by: George Hall DO
== END | disposition home or self-care (01) ==
LOC: RADMAMWWP 14:07
PROVIDERS: ATTEND Surgery
DX: R92.323 Mammographic fibroglandular density, bilateral breasts (principal); Z85.3 Personal history of malignant neoplasm of breast; Z78.0 Asymptomatic menopausal state; Z80.3 Family history of malignant neoplasm of breast
CPT/HCPCS: 77062; 77066

== ENCOUNTER → 2024-07-22 | Outpatient (CLI) | payer MEDICARE ==
[2024-07-22 14:58] VITALS: BP 157/85; PULSE 72; RESP 17; TEMP 98.3
--- NOTE | 2024-07-22 15:46 | P.PN ---
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 The first was at the 4 o'clock position in 2015 and the second was at the 10 o'clock position in 2023. The patient was treated with dissection/radiation/hormone therapy for the first lesion. The radiation therapy was a [facility]CA radiation. And she had Arimidex from -. The second lesion was ER/[place] positive she did not have radiation or hormone therapy. Because of the DCIS was 15 mm, all margins were negative, and 1 node was removed which was negative as well. We have discussed the fact that the patient chose not to have any follow-up with medical or radiation oncology following the DCIS diagnosis in 2023. However upon repeat discussing it she has agreed that she would see them. Objective - Vital Signs Vital signs: Vital Signs Temp 98.3 F 07/22/24 14:56 Pulse 72 07/22/24 14:56 Resp 17 07/22/24 14:56 BP 157/85 07/22/24 14:56 Pulse Ox 97 07/22/24 14:56 FiO2 Intake & Output 07/21/24 07/22/24 07/22/24 18:59 06:59 18:59 Weight 84.822 kg Assessment and Plan Assessment: Impression: Left breast invasive ductal carcinoma 2015 at the 4 o'clock position Left breast ductal carcinoma in situ 2023 at the 10 o'clock position/she did not follow with radiation or medical oncology following this resection Plan: We have again discussed follow-up with medical and radiation oncology and she has agreed that she will see them at this time. She understands that most likely radiation will not be recommended however she may be recommended to have additional hormone therapy. follow up here in 6 months or sooner any concerns
== END ==
LOC: WWCWWP 14:08
PROVIDERS: ATTEND Surgery
DX: D05.12 Intraductal carcinoma in situ of left breast (principal); F17.210 Nicotine dependence, cigarettes, uncomplicated; Z88.0 Allergy status to penicillin; Z88.1 Allergy status to other antibiotic agents; Z88.8 Allergy status to other drugs, medicaments and biological substances

== ENCOUNTER → 2025-01-20 | Outpatient (CLI) | payer MEDICARE ==
[2025-01-20 11:44] VITALS: BP 132/78; PULSE 79; RESP 16; TEMP 97.9
--- NOTE | 2025-01-20 11:56 | P.PN ---
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 Her pathology revealed a 4.5 mm invasive ductal cancer, SNB (-). All margins were (-). DCIS present all margins (-). She was treated with [facility] radiation. She did have arimidex from 2015 to 2019. She was seen in the emergency room on [id number]. She was complaining of swelling and erythema of the left breast. Resolved spontaneously without antibiotics or drainage. At that time an ultrasound was done of the left breast. It revealed postsurgical changes. A hypoechoic irregular mass at 10:00 was seen measuring 3 x 7 mm. This was considered suspicious and ultrasound- guided core biopsy was recommended. Did not complain of any new lumps masses or nodules of concern in either breast. She had a computed tomography scan of the chest done on 1923 which was negative for any evidence of lung cancer. The patient was scheduled for a lumpectomy and SNB however this was cancelled as the patient tested (+) for Influenza A She underwent an ultrasound core biopsy of the 10 o'clock position on 05-13-23 and this was (+) for DCIS. Focus about 7 mm. tolerated the procedure without difficulty. The mammogram and ultrasound reviewed with Dr. Burton. She underwent a left breast lumpectomy and SNB on 08-11-23 margins (-), one node (-), all margins (-). Size of DCIS 15 mm. Genetic testing initially (-) than called [facility] She did not follow up with the radiation or medical oncologist. She is not complaining of any new lumps masses or nodules of concern in either breast. patient had a cardiac stint placed October 2022 liver elevated enzymes related to statin drugs She is not concerned about any new lumps masses or nodules in her breast. She does complain in the heat with some rash and itching under her breast which is believed to be most likely fungal infection. She is not following with anyone at this time from medical or radiation oncology. bilateral mammogram 07-22-24 BIRAD 2 Caffeine: green tea daily nicotine: 1 pack/2 weeks chocolate: occasional BCP: 3 years as a teen hormones: none no antihormone therapy Family history: patient: left breast cancer Hormonal History: menarche: 15 A2, breast fed: yes, age at first live : 18 menopause: 49 Surgical history: 2 C-sections hernia repair left breast lumpectomy and SNB in 2016 left breast lumpectomy 08-11-23 had all her teeth pulled and is getting new dentures Medical History: liver COVID 2020 cardiac cath and stint Social History: nicotine: as above alcohol: none drugs: none - Constitutional Constitutional: Denies chills, Denies fever - EENT Comment: bilateral cataracts Eyes: denies blurred vision, denies pain Ears: bilateral: tinnitus, deny: decreased hearing Ears, nose, mouth and throat: Reports headache, Denies sore throat - Breasts Breasts: bilateral: as per HPI - Cardiovascular Cardiovascular: Reports shortness of breath - Respiratory Respiratory: Denies cough - Gastrointestinal Gastrointestinal: Denies abdominal pain, Denies diarrhea, Denies nausea, Denies vomiting - Genitourinary (Female) Genitourinary: Denies dysuria, Denies hematuria - Menstruation Menstruation: Reports postmenopausal - Musculoskeletal Comment: osteoarthritis Musculoskeletal: Reports myalgias - Integumentary Integumentary: Denies pruritus, Denies rash - Neurological Neurological: Denies numbness, Denies weakness - Psychiatric Psychiatric: Reports anxiety, Denies depression - Endocrine Endocrine: Reports weight change, Denies fatigue - Hematologic/Lymphatic Comment: none - Allergic/Immunologic Allergic/Immunologic: Reports seasonal allergies Past Medical History Past Medical History: Cancer, COPD, Diabetes Mellitus, Hyperlipidemia, Liver Disease, Myocardial Infarction (MD), Osteoarthritis (OA) Additional Past Medical History / Comment(s): RESTLESS LEG. BURSITIS RIGHT HIP. HAS POSITIVE HEPATITIS C ANTIBODIES. "funny feeling in rt side of chest fluttery sensation", breast ca left side,per pcp on her ekg showed minor heartattack, Last Myocardial Infarction Date:: unk History of Any Multi-Drug Resistant Organisms: None Reported Past Surgical History: Breast Surgery, Hernia Repair, Tubal Ligation Additional Past Surgical History / Comment(s): STEREOTACTIC BREAST BX LEFT. lumpectomy to lft breast, lymph nodes removed Additional Past Anesthesia/Blood Transfusion Reaction / Comment(s): COLONOSCOPY. DUE TO COPD SHE WOKE FROM ANESTHESIA COUGHING, CHOKING, SOB SHE WANTS TO ENSURE THAT HER HEAD OF BED WILL BE UP. Past Psychological History: Anxiety Smoking Status: Former smoker Past Alcohol Use History: None Reported Additional Past Alcohol Use History / Comment(s): SMOKED 25 YRS, 1 PPD. Past Drug Use History: None Reported - Past Family History Sister(s) Family Medical History: Cancer Additional Family Medical History / Comment(s): BREAST Medications and Allergies Home Medications Medication Instructions Recorded Confirmed Type metFORMIN HCL [Glucophage XR] 750 mg PO W/SUPPER 10/09/21 11/10/22 History Evolocumab [Repatha Sureclick] 0 mg SQ Q14D 11/07/22 11/10/22 History Fenofibrate Nanocrystallized 48 mg PO DAILY 11/07/22 11/10/22 History [Fenofibrate] Glusamine(Unk) 1 tab PO DAILY 11/07/22 11/10/22 History Metoprolol Succinate (ER) [Toprol 25 mg PO DAILY 11/07/22 11/10/22 History XL] Multivitamins, Thera [Multivitamin 1 tab PO DAILY 11/07/22 11/10/22 History (formulary)] Austin-3 Fatty Acids [Austin-3] 1,000 mg PO DAILY 11/07/22 11/10/22 History Aspirin EC [Ecotrin Low Dose] 81 mg PO DAILY #30 tab 11/11/22 Rx Prasugrel [Effient] 10 mg PO DAILY #90 tab 11/11/22 Rx Allergies Allergy/AdvReac Type Severity Reaction Status Date / Time amoxicillin [From Augmentin] AdvReac Unknown Verified 04/30/23 14:12 clavulanic acid AdvReac Unknown Verified 04/30/23 14:12 [From Augmentin] prednisone AdvReac SHAKING. Verified 04/30/23 14:12 Objective - Vital Signs Vital signs: Vital Signs Temp 97.9 F 01/20/25 11:41 Pulse 79 01/20/25 11:41 Resp 16 01/20/25 11:41 BP 132/78 01/20/25 11:41 Pulse Ox 98 01/20/25 11:41 FiO2 Intake & Output 01/19/25 01/20/25 01/20/25 18:59 06:59 18:59 Weight 85.275 kg - Constitutional General appearance: Present: cooperative - EENT Eyes: Present: EOMI ENT: Present: hearing grossly normal - Neck Neck: Present: normal ROM - Respiratory Respiratory: bilateral: CTA - Cardiovascular Rhythm: regular Heart sounds: normal: S1, S2 - Integumentary Integumentary: Present: normal turgor - Musculoskeletal Musculoskeletal: Present: gait normal - Psychiatric Psychiatric: Present: A&O x's 3, appropriate affect, intact judgment & insight - Additional findings Additional findings: Breast Exam: BRA: 3XL inspection: Asymmetry of the breast related to lumpectomy left breast, bilateral grade 3 ptosis Palpation: Right breast: Multiple positional exam fibrocystic changes no dominant masses or nodules of concern Right axilla: No adenopathy of concern left breast: Multi-positional exam post surgical changes and postradiation changes no discrete dominant masses or nodules of concern, tattoo left breast Left axilla: No adenopathy of concern No evidence of fungal infection on today's exam Assessment and Plan Assessment: Impression: Breast 10:00 ductal carcinoma in situ Radiographic abnormality left breast/status post ultrasound-guided core biopsy positive for DCIS done on [id number]; this was at the 10 o'clock position Status post left breast lumpectomy and radiation therapy for stage I invasive ductal carcinoma in 2015 this was at the 4 o'clock position History of what sounds like fungal infection under both breast Plan: Nystatin as needed for fungal infection bilateral mammogram in 2025 with appointment at that time CC: Dr. Damian
== END ==
LOC: WWCWWP 10:34
PROVIDERS: ATTEND Surgery
DX: C50.212 Malignant neoplasm of upper-inner quadrant of left female breast (principal); F17.200 Nicotine dependence, unspecified, uncomplicated; Z92.3 Personal history of irradiation; Z98.890 Other specified postprocedural states; Z87.2 Personal history of diseases of the skin and subcutaneous tissue; Z88.0 Allergy status to penicillin; Z88.8 Allergy status to other drugs, medicaments and biological substances; Z88.1 Allergy status to other antibiotic agents